=== PATIENT | female | born 1960 | race Caucasian/White ===

== ENCOUNTER 2023-06-27 21:44 | Inpatient (IN) ==
[2023-06-27] MEDS ORDERED: SODIUM CHLORIDE 0.9% 500 ML IV SCH (22:15)
--- NOTE | 2023-06-27 22:17 | Emergency Department Note ---
Impression & Plan Unsteady, skilled nursing (current) use of anticoagulants, Fall, Hematoma of occipital region of scalp ED Provider Note Provider: Charly Swan MD DATE OF SERVICE: 06/27/2023 CHIEF COMPLAINT: Unbalanced, fall x2 HISTORY OF PRESENT ILLNESS: Patient is a 62-year-old female history of type 2 diabetes, hypertension, gastric sleeve and aortic stenosis status post replacement on chronic Coumadin presenting here stating over the last week or 2 she has had some periods of on balance test. Today there is been multiple episodes. 2 occurred while she was at work at [employer]. Lost balance around 5 PM but did not suffer significant fall. Was more imbalanced around 9 PM and went to the ground but did not think she lost consciousness. Memory is little bit foggy. No seizure activity reported. Bit of head pain and posterior head swelling and discomfort. No bleeding reported. Denies chest pain or palpitations. Denies difficulty breathing. Had a bit of congestion and sinus congestion earlier in the week without improving. Trace leg swelling but denies significant. 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 EYES: No injection, discharge or icterus. PERRL, EOMI. NECK: Trachea midline. Supple. ENT: Mucous membranes pink and moist. Pharynx without erythema or exudate. LUNGS: Airway patent. No retractions. Breath sounds clear with good air entry bilaterally. HEART: Regular rate and rhythm. No chest wall tenderness ABDOMEN: Soft and non-tender, without guarding or rebound. No hepatosplenomegaly or masses BACK: No midline tenderness, no SI joint tenderness. No bilateral flank tenderness. SKIN: Acyanotic, warm, dry, without rashes EXTREMITIES: Without swelling, tenderness or deformity NEUROLOGICAL: No focal deficits. No aphasia. No facial droop or slurred speech. Normal strength and tone in the extremities. Sensation to gross touch normal. Ambulatory. EK bpm sinus rhythm first-degree AV block with right bundle branch block evident. No acute ST segment elevation is noted with some T wave flattening to inversion laterally. QTc 476. Compared to previous from March 23, 2022 longer with PVC. CONTINUOUS CARDIAC MONITORING: was ordered and showed a heart rate of 60s-70s bpm in normal sinus rhythm Patient's laboratory studies and imaging reviewed. Differential includes Vasovagal event, dehydration, infection, hypoglycemia, electrolyte abnormalities, cardiac sources, intracerebral event, pulmonary embolism, seizure, toxicologic, neurologic, as well as other pathologies. IMPRESSION/MEDICAL DECISION MAKING: Patient with a bit of imbalance nature and then a fall today with a seemingly scalp occiput hematoma. Is on Coumadin. CT of the head cervical spine to be obtained. INR checked and is somewhat elevated at 3.5. Discussed with patient. No significant trauma otherwise to the extremities or chest abdomen pelvis appreciated. Denies palpitations. Denies loss of conscious. Does not seem like seizure. Did have a little bit of sinus congestion recently. COVID- negative. No significant chemistry abnormality signs of renal dysfunction. Thyroid function normal. Troponin level normal. No evidence of hepatic transaminitis. CT head and cervical spine by radiology report without significant traumatic injury or intracranial bleeding noted. Again doubt this is ACS/NC. Unclear exact etiology. Did discuss with her likely needing to hold 1 dose of her Coumadin discuss further long-term dosing given the elevated INR today. Discussed options at this time including possible observation for fur ther evaluation given these recurrent events or cardiac history versus close outpatient follow-up. Given the elevated INR and her falls and unsteadiness periods will bring in for further monitoring and neurological evaluation including possible neuro consult and MRI. Lower suspicion this is cardiac. DIAGNOSIS: Unbalanced, fall, long-term anticoagulation DISPOSITION: Hospitalist will evaluate Patient was agreeable with this plan. Past Med/Surg History Medical History (Updated 06/28/23 @ 00:19 by Charly Swan M.D.) Aortic stenosis Echo performed in December 2021 at [facility] showed EF of 65 to 69%. Aortic va lve moderately calcified with severe aortic stenosis. 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 Home Meds Home Medications Medication Instructions Recorded Confirmed atenolol 50 mg tablet 25 mg PO QAM 01/24/22 02/08/22 cholecalciferol (vitamin D3) 50 2,000 unit PO QAM 01/24/22 02/08/22 mcg (2,000 unit) capsule (Vitamin D3) fenofibrate nanocrystallized 145 145 mg PO QAM 01/24/22 02/08/22 mg tablet furosemide 20 mg tablet (Lasix) 20 mg PO QAM 01/24/22 02/08/22 insulin glargine 100 unit/mL (3 32 unit subcut QA 01/24/22 02/08/22 mL) subcutaneous pen (Lantus Solostar U-100 Insulin) metformin 500 mg tablet,extended 1,000 mg PO QAM 01/24/22 02/08/22 release 24 hr omeprazole 20 mg capsule,delayed 20 mg PO QAM 01/24/22 02/08/22 release rosuvastatin 40 mg tablet 40 mg PO QAM 01/24/22 02/08/22 semaglutide 0.25 mg or 0.5 mg (2 1 mg subcut WK 01/24/22 02/08/22 mg/1.5 mL) subcutaneous pen injector (Ozempic) Results & Data (ED) Vital Signs Vital Signs - 24 hr 06/27/23 21:33 06/27/23 21:51 06/27/23 22:09 Temperature 36.8 C Temperature Source Oral Pulse Rate 72 Respiratory Rate 16 Respiratory Effort / Characteristics Non-Labored Spontaneous Non-Labored Spontaneous Respiratory Depth Normal Normal Blood Pressure 165/114 H Blood Pressure Mean 131 Pulse Oximetry 97 98 Oxygen Delivery Method Room Air Room Air Sepsis New/Unexplained Change in Mental Status No Sepsis Action Taken by Nursing No Action Required Laboratory Data 06/27/23 22:10 06/27/23 22:10 Lab Results 06/27/23 06/27/23 06/27/23 Range/Units 22:10 22:10 22:10 WBC 6.72 (4.8-10.8) K/ul RBC 5.23 (4.20-5.40) M/uL Hgb 15.2 (12.0-16.0) g/dl Hct 46.8 (37.0-47.0) % MCV 89.5 (80.0-100.0) fL MCH 29.1 (25.0-34.0) pg MCHC 32.5 (32.0-36.0) g/dL RDW Std Deviation 43.7 (36.4-46.3) fL RDW Coeff of Ginny 13.3 (11.5-14.5) % Plt Count 244 (130-400) K/uL MPV 9.9 (9.4-12.4) fL Immature Gran % (Auto) 0.1 % Neut % (Auto) 50.3 % Lymph % (Auto) 40.3 % Amite % (Auto) 7.7 % Eos % (Auto) 1.2 % Baso % (Auto) 0.4 % Neut # (Auto) 3.37 (1.40-6.50) K/uL Lymph # (Auto) 2.71 (1.20-3.40) K/uL Amite # (Auto) 0.52 (0.11-0.59) K/uL Eos # (Auto) 0.08 (0.00-0.50) K/uL Baso # (Auto) 0.03 (0.00-0.20) K/uL Immature Gran # (Auto) 0.01 (0.01-0.20) K/uL PT 35.2 H (9.0-12.0) Seconds INR 3.5 H (0.9-1.1) APTT 41.3 H* (21.0-31.0) Seconds PTT Ratio 1.5 Sodium 139 (136-145) mmol/L Potassium 4.6 (3.5-5.1) mmol/L Chloride 108 H (98-107) mmol/L Carbon Dioxide 22 (21-32) mmol/L Anion Gap 9 (3-11) BUN 20 (6-23) mg/dl Creatinine 0.62 (0.6-1.2) mg/dl Est Cr Clr Drug Dosing 128.4 ml/min Est GFR ( Amer) 112.8 ml/min Est GFR (Non-Af Amer) 97.3 ml/min BUN/Creatinine Ratio 32.3 H (10-20) Glucose 118 H (70-99(Fasting)) mg/dl Calcium 9.6 (8.6-10.3) mg/dl Magnesium 2.0 (1.7-2.4) mg/dl Total Bilirubin 0.5 (0.2-1.0) mg/dl AST 15 (13-39) U/L ALT 11 (7-52) U/L Alkaline Phosphatase 75 (34-104) U/L Troponin I High Sens 6.2 (0-14) pg/ml Total Protein 6.7 (6.0-8.3) gm/dl Albumin 4.3 (3.4-5.0) gm/dl Globulin 2.4 L (2.5-4.0) gm/dl Albumin/Globulin Ratio 1.8 (0.9-2) TSH 0.877 (0.300-4.500) uIu/ml SARS-CoV-2, RNA, NAAT (NEGATIVE) 06/27/23 Range/Units 23:00 WBC (4.8-10.8) K/ul RBC (4.20-5.40) M/uL Hgb (12.0-16.0) g/dl Hct (37.0-47.0) % MCV (80.0-100.0) fL MCH (25.0-34.0) pg MCHC (32.0-36.0) g/dL RDW Std Deviation (36.4-46.3) fL RDW Coeff of Ginny (11.5-14.5) % Plt Count (130-400) K/uL MPV (9.4-12.4) fL Immature Gran % (Auto) % Neut % (Auto) % Lymph % (Auto) % Amite % (Auto) % Eos % (Auto) % Baso % (Auto) % Neut # (Auto) (1.40-6.50) K/uL Lymph # (Auto) (1.20-3.40) K/uL Amite # (Auto) (0.11-0.59) K/uL Eos # (Auto) (0.00-0.50) K/uL Baso # (Auto) (0.00-0.20) K/uL Immature Gran # (Auto) (0.01-0.20) K/uL PT (9.0-12.0) Seconds INR (0.9-1.1) APTT (21.0-31.0) Seconds PTT Ratio Sodium (136-145) mmol/L Potassium (3.5-5.1) mmol/L Chloride (98-107) mmol/L Carbon Dioxide (21-32) mmol/L Anion Gap (3-11) BUN (6-23) mg/dl Creatinine (0.6-1.2) mg/dl Est Cr Clr Drug Dosing ml/min Est GFR ( Amer) ml/min Est GFR (Non-Af Amer) ml/min BUN/Creatinine Ratio (10-20) Glucose (70-99(Fasting)) mg/dl Calcium (8.6-10.3) mg/dl Magnesium (1.7-2.4) mg/dl Total Bilirubin (0.2-1.0) mg/dl AST (13-39) U/L ALT (7-52) U/L Alkaline Phosphatase (34-104) U/L Troponin I High Sens (0-14) pg/ml Total Protein (6.0-8.3) gm/dl Albumin (3.4-5.0) gm/dl Globulin (2.5-4.0) gm/dl Albumin/Globulin Ratio (0.9-2) TSH (0.300-4.500) uIu/ml SARS-CoV-2, RNA, NAAT NEGATIVE (NEGATIVE) Administered Medications Discontinued Medications Acetaminophen (Acetaminophen 500 Mg Tab) 1,000 mg PO NOW STA Stop: 06/27/23 22:49 Last Admin: 06/27/23 22:55 Dose: 1,000 mg Documented By: DONNA Sodium Chloride (Nss) 500 mls @ 999 mls/hr IV .Q31M GINA Stop: 06/27/23 22:45 Last Admin: 06/27/23 22:13 Dose: 999 mls/hr Documented By: DONNA Imaging Data Radiologist's Impression: Cervical Spine CT 06/27/23 22:17 Exam(s): CT C SPINE EXAM: CT Cervical Spine Without Intravenous Contrast CLINICAL HISTORY: Reason for exam: fall. TECHNIQUE: Axial computed tomography images of the cervical spine without intravenous contrast. CTDI is 25.33 mGy and DLP is 535.44 mGy-cm. Automated exposure control was utilized for the study. A dose lowering technique was utilized adhering to the principles of ALARA. COMPARISON: No relevant prior studies available. FINDINGS: Vertebrae: There is straightening of the normal cervical lordosis. There is diffuse osseous demineralization. No acute fracture. Discs/spinal canal/neural foramina: There is moderate to severe multilevel degenerative change with intervertebral disc space loss and productive changes. No spinal canal stenosis. Soft tissues: Unremarkable. Vasculature: There is dense calcification of the carotid bulbs. IMPRESSION: Multilevel degenerative change without acute injury identified. Electronically signed by: Gilberto Molina MD 06/27/23 23:[address] 06/27/23 22:17 Exam(s): CT HEAD Without Contrast EXAM: CT Head Without Intravenous Contrast CLINICAL HISTORY: Reason for exam: hit head on coumadin. TECHNIQUE: Axial computed tomography images of the head/brain without intravenous contrast. CTDI is 37.22 mGy and DLP is 624.41 mGy-cm. Automated exposure control was utilized for the study. A dose lowering technique was utilized adhering to the principles of ALARA. 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 The cerebral and cerebellar sulci are mildly prominent consistent with mild brain atrophy. There are a few areas of decreased attenuation in the deep cerebral white matter consistent with mild small vessel ischemic/degenerative changes. No hemorrhage. Ventricles: Unremarkable. No ventriculomegaly. Bones/joints: Unremarkable. No acute fracture. Soft tissues: Moderate soft tissue swelling over the high right parietal calvarium. Vasculature: Atherosclerotic disease. Sinuses: Unremarkable as visualized. No acute sinusitis. Mastoid air cells: Unremarkable as visualized. No mastoid effusion. IMPRESSION: No acute findings in the head/brain. 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, Fall, Hematoma of occipital region of scalp Patient Disposition: Being Evaluated by Hospitalist Forms Stand Alone Forms: My [facility] Prescriptions Prescriptions: No Action omeprazole 20 mg capsule,delayed release(DR/EC) 20 mg PO QAM furosemide [Lasix] 20 mg tablet 20 mg PO QAM metformin 500 mg tablet extended release 24 hr 1,000 mg PO QAM atenolol 50 mg tablet 25 mg PO QAM rosuvastatin 40 mg tablet 40 mg PO QAM fenofibrate nanocrystallized 145 mg tablet 145 mg PO QAM Lantus Solostar U-100 Insulin 100 unit/mL (3 mL) insulin pen 32 unit SUBCUT QAM cholecalciferol (vitamin D3) [Vitamin D3] 50 mcg (2,000 unit) Capsule 2,000 unit PO QAM Ozempic 0.25 mg or 0.5 mg(2 mg/1.5 mL) pen injector 1 mg SUBCUT WK Rx Instructions: TAKES ON SUNDAYS. Referrals Referrals: Pam Sosa MD [Primary Care Provider] -
[2023-06-27 22:29] LABS: Basophils # (auto) 0.03 K/uL (0.00-0.20); Basophils % (auto) 0.4 %; Eosinophils # (auto) 0.08 K/uL (0.00-0.50); Eosinophils % (auto) 1.2 %; Hematocrit (blood only) 46.8 % (37.0-47.0); Hemoglobin 15.2 g/dl (12.0-16.0); Immature Granulocytes # (auto) 0.01 K/uL (0.01-0.20); Immature Granulocytes % (auto) 0.1 %; Lymphocytes # (auto) 2.71 K/uL (1.20-3.40); Lymphocytes % (auto) 40.3 %; Mean Corpuscular Hemoglobin 29.1 pg (25.0-34.0); Mean Corpuscular Hgb Conc 32.5 g/dL (32.0-36.0); Mean Corpuscular Volume 89.5 fL (80.0-100.0); Mean Platelet Volume 9.9 fL (9.4-12.4); Monocytes # (auto) 0.52 K/uL (0.11-0.59); Monocytes % (auto) 7.7 %; Neutrophils # (auto) 3.37 K/uL (1.40-6.50); Neutrophils % (auto) 50.3 %; Platelet Count 244 K/uL (130-400); RDW Coefficient of Variation 13.3 % (11.5-14.5); RDW Standard Deviation 43.7 fL (36.4-46.3); Red Blood Count 5.23 M/uL (4.20-5.40); White Blood Count 6.72 K/ul (4.8-10.8)
[2023-06-27] MEDS ORDERED: ACETAMINOPHEN 500 MG TAB PO STA (22:48)
[2023-06-27 22:54] LABS: Troponin I High Sensitivity 6.2 pg/ml (0-14)
[2023-06-27 22:58] LABS: Albumin Level 4.3 gm/dl (3.4-5.0); Bilirubin,Total 0.5 mg/dl (0.2-1.0); Calcium 9.6 mg/dl (8.6-10.3); Potassium 4.6 mmol/L (3.5-5.1)
[2023-06-27 23:03] LABS: Thyroid Stimulating Hormone 0.877 uIu/ml (0.300-4.500)
[2023-06-27 23:04] LABS: Albumin Globulin Ratio 1.8 (0.9-2); BUN Creatinine Ratio 32.3 (10-20); Creatinine Clr Calc Pharmacy 128.4 ml/min; Est GFR (African American) 112.8 ml/min; Est GFR (Non-African American) 97.3 ml/min; Globulin 2.4 gm/dl (2.5-4.0); Total Protein 6.7 gm/dl (6.0-8.3)
[2023-06-27 23:14] LABS: INR 3.5 (0.9-1.1); Partial Thromboplastin Ratio 1.5; Prothrombin Time 35.2 Seconds (9.0-12.0)
[2023-06-27 23:18] LABS: Partial Thromboplastin Time 41.3 Seconds (21.0-31.0)
--- NOTE | 2023-06-27 23:47 | CT Scan Report ---
Exam(s): CT HEAD Without Contrast EXAM: CT Head Without Intravenous Contrast CLINICAL HISTORY: Reason for exam: hit head on coumadin. TECHNIQUE: Axial computed tomography images of the head/brain without intravenous contrast. CTDI is 37.22 mGy and DLP is 624.41 mGy-cm. Automated exposure control was utilized for the study. A dose lowering technique was utilized adhering to the principles of ALARA. 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 The cerebral and cerebellar sulci are mildly prominent consistent with mild brain atrophy. There are a few areas of decreased attenuation in the deep cerebral white matter consistent with mild small vessel ischemic/degenerative changes. No hemorrhage. Ventricles: Unremarkable. No ventriculomegaly. Bones/joints: Unremarkable. No acute fracture. Soft tissues: Moderate soft tissue swelling over the high right parietal calvarium. Vasculature: Atherosclerotic disease. Sinuses: Unremarkable as visualized. No acute sinusitis. Mastoid air cells: Unremarkable as visualized. No mastoid effusion. IMPRESSION: No acute findings in the head/brain. Electronically signed by: Gilberto Molina MD 06/27/23 23:47 PM
--- NOTE | 2023-06-27 23:49 | CT Scan Report ---
Exam(s): CT C SPINE EXAM: CT Cervical Spine Without Intravenous Contrast CLINICAL HISTORY: Reason for exam: fall. TECHNIQUE: Axial computed tomography images of the cervical spine without intravenous contrast. CTDI is 25.33 mGy and DLP is 535.44 mGy-cm. Automated exposure control was utilized for the study. A dose lowering technique was utilized adhering to the principles of ALARA. COMPARISON: No relevant prior studies available. FINDINGS: Vertebrae: There is straightening of the normal cervical lordosis. There is diffuse osseous demineralization. No acute fracture. Discs/spinal canal/neural foramina: There is moderate to severe multilevel degenerative change with intervertebral disc space loss and productive changes. No spinal canal stenosis. Soft tissues: Unremarkable. Vasculature: There is dense calcification of the carotid bulbs. IMPRESSION: Multilevel degenerative change without acute injury identified. Electronically signed by: Gilberto Molina MD 06/27/23 23:48 PM
--- NOTE | 2023-06-28 02:10 | History & Physical Report ---
Date of Service June 28, 2023 Assessment & Plan (1) Fall: Plan: 62-year-old female with past medical significant for type 2 diabetes, hypertension, sleep apnea, hypertension, severe aortic stenosis s/p aortic valve replacement, obesity s/p gastric sleeve procedure presents with imbalance and fall. Imbalance and fall Imbalance ongoing for some time but today fell twice Has occipital hematoma. Questionable presyncope We will rule out any central cause We will check orthostatics Carotid Doppler, echo and MRI of the brain Telemetry monitoring Consult cardiology in a.m. History of diabetes Continue Lantus Hold p.o. medications Insulin sliding scale We will follow blood sugars and HbA1c levels Hypertension Continue atenolol We will monitor Hyperlipidemia On statin and fenofibrate History of severe arctic stenosis s/p attic valve replacement mechanical On Coumadin. INR 3.5 we will hold Coumadin follow PT/INR Obstructive sleep apnea CPAP nightly DVT prophylaxis INR supratherapeutic follow PT/INR Disposition telemetry floor Full code History of Present Illness Chief Complaint: Imbalance and fall Primary Care Provider: Pam Sosa MD 62-year-old female with past medical significant for type 2 diabetes, hypertension, sleep apnea, hypertension, severe aortic stenosis s/p aortic valve replacement, obesity s/p gastric sleeve procedure presents with imbalance and fall. 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 When she was walking again she she felt loss of balance and fell backwards and hit her back of the head. During the episode no loss of consciousness, no feeling of chest pain or dizziness or palpitations. She is feeling imbalance for some time at home but she thinks she never fell. Currently has some headache. Denies any blurred visions. No earaches. Early in the week she has some cold symptoms but got resolved now. No dysphagia. No chest pain or shortness of breath. Currently no cough. Appetite is okay. No nausea or vomiting. No abdominal pain. Normal bowel and bladder movements. Currently resting comfortably. Past medical history as mentioned above Past surgical history. S/p aortic valve replacement. S/p gastric sleeve procedure. Right breast biopsy. Social history. No smoking. No alcohol. Family history. Mother had atrial fibrillation. Heart failure. Stroke. Father has colon polyps. CAD. Hyperlipidemia. Prediabetes. Paternal grandfather had brain aneurysm. Maternal aunt had breast cancer. Paternal aunt has colon cancer. Maternal grandfather had a heart attack. Brother has hyperlipidemia. Maternal grandmother had stroke. Allergies Allergy/AdvReac Type Severity Reaction Status Date / Time Calcium Channel Blocking AdvReac Unknown CAN'T Verified 06/28/23 03:26 Agent Dilt REMEMBER WHICH MEDICATION OR REACTION. Home Medications Medication Instructions Recorded Confirmed Type atenolol 50 mg tablet 25 mg PO BID 01/24/22 06/28/23 History cholecalciferol (vitamin D3) 50 2,000 unit PO QAM 01/24/22 06/28/23 History mcg (2,000 unit) capsule (Vitamin D3) fenofibrate nanocrystallized 145 145 mg PO QAM 01/24/22 06/28/23 History mg tablet furosemide 20 mg tablet (Lasix) 20 mg PO QAM 01/24/22 06/28/23 History insulin glargine 100 unit/mL (3 28 unit subcut HS 01/24/22 06/28/23 History mL) subcutaneous pen (Lantus Solostar U-100 Insulin) metformin 500 mg tablet,extended 1,000 mg PO QAM 01/24/22 06/28/23 History release 24 hr omeprazole 20 mg capsule,delayed 20 mg PO QAM 01/24/22 06/28/23 History release rosuvastatin 40 mg tablet 40 mg PO QAM 01/24/22 06/28/23 History aspirin 81 mg chewable tablet 81 mg PO DAILY 06/28/23 06/28/23 History semaglutide 2 mg/dose (8 mg/3 mL) 2 mg subcut WK 06/28/23 06/28/23 History subcutaneous pen injector (Ozempic) warfarin 5 mg tablet 7.5 mg PO .6DAYS WEEK 06/28/23 06/28/23 History warfarin 5 mg tablet 10 mg PO .Q THUR 06/28/23 06/28/23 History Past Med/Surg History Medical History (Updated 06/28/23 @ 00:19 by Charly Swan M.D.) Aortic stenosis Echo performed in December 2021 at [facility] showed EF of 65 to 69%. Aortic valve moderately calcified with severe aortic stenosis. Dyslipidemia HTN (hypertension) Sleep apnea Type 2 diabetes mellitus Surgical History H/O gastric sleeve History of heart valve replacement AVR 23mm On X valve; bovine pericardial patch closure aortotomy on Family History (Updated 04/19/22 @ 14:25 by Eneida Quesada RN) Mother Valvular heart disease Social History Smoking Status: Never smoker Second Hand Exposure: No; Do You Dip or Chew Tobacco: No; Hx Alcohol Use: Yes Hx Substance Use: No Preferred Language: Maltese Communication Ability: Effective Applications Scientist Required: No Beliefs That Will Affect Care: None Current Living Situation: Parent and Family 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 Eyes- PERRL, EOMI, anicteric ENT- oropharynx clear Neck- supple, no JVD, no adenopathy, . Lungs- clear to auscultation , No wheezing or crackles. Heart- regular rhythm; mechanical heart sounds in aortic area., no gallop. Abdomen- normal bowel sounds, soft, nontender, no distension. Extremities-Lower extremity edema present. No erythema seen. Neuro- alert, oriented x 3; PERRL, EOMI; no facial palsy; no dysarthria; motor 5/5 bilaterally; no pronator drift, coordination of movements normal, sensation and position sense intact. Skin- warm & dry Results & Data Results & Data Vital Signs (Past 12 Hours) Vital Signs Temp Pulse Resp BP Pulse Ox O2 Del Method 06/28/23 01:30 63 17 194/83 H 96 06/28/23 01:00 63 18 97 06/28/23 00:00 63 21 158/82 H 96 06/27/23 23:30 64 17 165/87 H 99 06/27/23 23:00 67 16 98 06/27/23 22:09 66 06/27/23 22:09 98 Room Air 06/27/23 21:33 36.8 C 72 16 165/114 H 97 Room Air Diagnostic Findings Laboratory Results WBC 6.72 K/ul (4.8-10.8) 06/27/23 22:10 RBC 5.23 M/uL (4.20-5.40) 06/27/23 22:10 Hgb 15.2 g/dl (12.0-16.0) 06/27/23 22:10 Hct 46.8 % (37.0-47.0) 06/27/23 22:10 MCV 89.5 fL (80.0-100.0) 06/27/23 22:10 MCH 29.1 pg (25.0-34.0) 06/27/23 22:10 MCHC 32.5 g/dL (32.0-36.0) 06/27/23 22:10 RDW Std Deviation 43.7 fL (36.4-46.3) 06/27/23 22:10 RDW Coeff of Ginny 13.3 % (11.5-14.5) 06/27/23 22:10 Plt Count 244 K/uL (130-400) 06/27/23 22:10 MPV 9.9 fL (9.4-12.4) 06/27/23 22:10 Immature Gran % (Auto) 0.1 % 06/27/23 22:10 Neut % (Auto) 50.3 % 06/27/23 22:10 Lymph % (Auto) 40.3 % 06/27/23 22:10 Angelina % (Auto) 7.7 % 06/27/23 22:10 Eos % (Auto) 1.2 % 06/27/23 22:10 Baso % (Auto) 0.4 % 06/27/23 22:10 Neut # (Auto) 3.37 K/uL (1.40-6.50) 06/27/23 22:10 Lymph # (Auto) 2.71 K/uL (1.20-3.40) 06/27/23 22:10 Angelina # (Auto) 0.52 K/uL (0.11-0.59) 06/27/23 22:10 Eos # (Auto) 0.08 K/uL (0.00-0.50) 06/27/23 22:10 Baso # (Auto) 0.03 K/uL (0.00-0.20) 06/27/23 22:10 Immature Gran # (Auto) 0.01 K/uL (0.01-0.20) 06/27/23 22:10 PT 35.2 Seconds (9.0-12.0) H 06/27/23 22:10 INR 3.5 (0.9-1.1) H 06/27/23 22:10 APTT 41.3 Seconds (21.0-31.0) H* 06/27/23 22:10 PTT Ratio 1.5 06/27/23 22:10 Sodium 139 mmol/L (136-145) 06/27/23 22:10 Potassium 4.6 mmol/L (3.5-5.1) 06/27/23 22:10 Chloride 108 mmol/L (98-107) H 06/27/23 22:10 Carbon Dioxide 22 mmol/L (21-32) 06/27/23 22:10 Anion Gap 9 (3-11) 06/27/23 22:10 BUN 20 mg/dl (6-23) 06/27/23 22:10 Creatinine 0.62 mg/dl (0.6-1.2) 06/27/23 22:10 Est Cr Clr Drug Dosing 128.4 ml/min 06/27/23 22:10 Est GFR ( Amer) 112.8 ml/min 06/27/23 22:10 Est GFR (Non-Af Amer) 97.3 ml/min 06/27/23 22:10 BUN/Creatinine Ratio 32.3 (10-20) H 06/27/23 22:10 Glucose 118 mg/dl (70-99(Fasting)) H 06/27/23 22:10 Calcium 9.6 mg/dl (8.6-10.3) 06/27/23 22:10 Magnesium 2.0 mg/dl (1.7-2.4) 06/27/23 22:10 Total Bilirubin 0.5 mg/dl (0.2-1.0) 06/27/23 22:10 AST 15 U/L (13-39) 06/27/23 22:10 ALT 11 U/L (7-52) 06/27/23 22:10 Alkaline Phosphatase 75 U/L (34-104) 06/27/23 22:10 Troponin I High Sens 6.2 pg/ml (0-14) 06/27/23 22:10 Total Protein 6.7 gm/dl (6.0-8.3) 06/27/23 22:10 Albumin 4.3 gm/dl (3.4-5.0) 06/27/23 22:10 Globulin 2.4 gm/dl (2.5-4.0) L 06/27/23 22:10 Albumin/Globulin Ratio 1.8 (0.9-2) 06/27/23 22:10 TSH 0.877 uIu/ml (0.300-4.500) 06/27/23 22:10 SARS-CoV-2, RNA, NAAT NEGATIVE (NEGATIVE) 06/27/23 23:[address] 06/27/23 22:17 Exam(s): CT C SPINE EXAM: CT Cervical Spine Without Intravenous Contrast CLINICAL HISTORY: Reason for exam: fall. TECHNIQUE: Axial computed tomography images of the cervical spine without intravenous contrast. CTDI is 25.33 mGy and DLP is 535.44 mGy-cm. Automated exposure control was utilized for the study. A dose lowering technique was utilized adhering to the principles of ALARA. COMPARISON: No relevant prior studies available. FINDINGS: Vertebrae: There is straightening of the normal cervical lordosis. There is diffuse osseous demineralization. No acute fracture. Discs/spinal canal/neural foramina: There is moderate to severe multilevel degenerative change with intervertebral disc space loss and productive changes. No spinal canal stenosis. Soft tissues: Unremarkable. Vasculature: There is dense calcification of the carotid bulbs. IMPRESSION: Multilevel degenerative change without acute injury identified. Electronically signed by: Gilberto Molina MD 06/27/23 23:[address] 06/27/23 22:17 Exam(s): CT HEAD Without Contrast EXAM: CT Head Without Intravenous Contrast CLINICAL HISTORY: Reason for exam: hit head on coumadin. TECHNIQUE: Axial computed tomography images of the head/brain without intravenous contrast. CTDI is 37.22 mGy and DLP is 624.41 mGy-cm. Automated exposure control was utilized for the study. A dose lowering technique was utilized adhering to the principles of ALARA. 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 The cerebral and cerebellar sulci are mildly prominent consistent with mild brain atrophy. There are a few areas of decreased attenuation in the deep cerebral white matter consistent with mild small vessel ischemic/degenerative changes. No hemorrhage. Ventricles: Unremarkable. No ventriculomegaly. Bones/joints: Unremarkable. No acute fracture. Soft tissues: Moderate soft tissue swelling over the high right parietal calvarium. Vasculature: Atherosclerotic disease. Sinuses: Unremarkable as visualized. No acute sinusitis. Mastoid air cells: Unremarkable as visualized. No mastoid effusion. IMPRESSION: No acute findings in the head/brain. Electronically signed by: Gilberto Molina MD 06/27/23 23:47 PM ECG Additional Comments: ECG. Sinus rhythm with first-degree AV block with rate of 63. Right bundle branch block. Code Status & VTE Plan VTE Prophylaxis Plan VTE Prophylaxis will be ordered: Yes
[2023-06-28] MEDS ORDERED: POLYETHYLENE (MIRALAX) 17 GM PACK PO PRN (02:53)
[2023-06-28] MEDS ORDERED: GLUCOSE 40% GEL 15 GM TUBE PO PRN (02:53)
[2023-06-28] MEDS ORDERED: CARBOHYDRATES FOR HYPOGLYCEMIA PO PRN (02:53)
[2023-06-28] MEDS ORDERED: SODIUM CHLORIDE 0.9% 1,000 ML IV SCH (02:53)
[2023-06-28] MEDS ORDERED: GLUCOSE 10 TAB/TUBE PO PRN (02:53)
[2023-06-28] MEDS ORDERED: GLUCAGON FOR INJ 1 MG VIAL SQ PRN (02:53)
[2023-06-28] MEDS ORDERED: NITROGLYCERIN SL 0.4 MG/TAB TAB SL PRN (02:53)
[2023-06-28] MEDS ORDERED: DEXTROSE 50% 50 ML SYRINGE IV PRN (02:53)
[2023-06-28] MEDS ORDERED: GADOBUTROL 65ML VIAL IV ONE (04:23)
[2023-06-28 05:43] LABS: Basophils # (auto) 0.04 K/uL (0.00-0.20); Basophils % (auto) 0.6 %; Eosinophils % (auto) 1.4 %; Hematocrit (blood only) 47.1 % (37.0-47.0); Hemoglobin 15.6 g/dl (12.0-16.0); Immature Granulocytes # (auto) 0.01 K/uL (0.01-0.20); Immature Granulocytes % (auto) 0.1 %; Lymphocytes # (auto) 2.67 K/uL (1.20-3.40); Lymphocytes % (auto) 37.5 %; Mean Corpuscular Hemoglobin 29.2 pg (25.0-34.0); Mean Corpuscular Hgb Conc 33.1 g/dL (32.0-36.0); Mean Platelet Volume 9.9 fL (9.4-12.4); Monocytes # (auto) 0.59 K/uL (0.11-0.59); Monocytes % (auto) 8.3 %; Neutrophils # (auto) 3.71 K/uL (1.40-6.50); Neutrophils % (auto) 52.1 %; Platelet Count 254 K/uL (130-400); RDW Coefficient of Variation 13.5 % (11.5-14.5); RDW Standard Deviation 43.4 fL (36.4-46.3); Red Blood Count 5.35 M/uL (4.20-5.40); White Blood Count 7.12 K/ul (4.8-10.8)
[2023-06-28] MEDS: ACETAMINOPHEN 325 MG TAB PO PRN ×2 (06:11→15:33)
[2023-06-28 06:23] LABS: Calcium 9.9 mg/dl (8.6-10.3); Magnesium 1.9 mg/dl (1.7-2.4); Potassium 4.2 mmol/L (3.5-5.1)
[2023-06-28 06:28] LABS: BUN Creatinine Ratio 30.6 (10-20); Creatinine Clr Calc Pharmacy 128.4 ml/min; Est GFR (African American) 112.8 ml/min; Est GFR (Non-African American) 97.3 ml/min
[2023-06-28 07:04] LABS: INR 3.1 (0.9-1.1); Prothrombin Time 31.7 Seconds (9.0-12.0)
[2023-06-28 07:30] LABS: Estimated Average Glucose 163 mg/dl; Hemoglobin A1C 7.3 % (4.5-5.6)
--- NOTE | 2023-06-28 07:44 | Ultrasound Report ---
BILATERAL CAROTID DOPPLER STUDY HISTORY: near syncope COMPARISON: CTA neck 03/23/2022. TECHNIQUE: Real-time, grayscale, and color Doppler sonography of the carotid arteries was performed. Imaging reviewed in the transverse and longitudinal planes. All measurements were calculated based on NASCET criteria. FINDINGS: Antegrade flow is seen in the bilateral vertebral arteries. No significant calcified plaque within the carotid arteries. The peak systolic velocity within the right ICA is 70 cm/s. The right systolic ratio is 1.2. The peak systolic velocity within the left ICA is 74 cm/s. The left systolic ratio is 1.2. IMPRESSION: No hemodynamically significant stenosis seen within the carotid arteries. ACT 112: Negative or not required by law. Electronically signed by: Eulalio Valdivia M.D. 06/28/2023 7:43 AM
[2023-06-28] MEDS ORDERED: hydrALAZINE HCL 20 MG/ML VIAL IV ONE (08:00)
[2023-06-28] MEDS: FENOFIBRATE NANOCRYSTALLIZED 145 MG TABLET PO SCH (08:29)
[2023-06-28] MEDS: FUROSEMIDE 20 MG TAB PO SCH (08:29)
[2023-06-28] MEDS: ROSUVASTATIN CALCIUM 20 MG TAB PO SCH (08:29)
[2023-06-28] MEDS: ATENOLOL 25 MG TABLET PO SCH ×2 (08:29→20:51)
[2023-06-28] MEDS: ASPIRIN 81 MG CHEW PO SCH (08:29)
[2023-06-28] MEDS: CHOLECALCIFEROL 1,000 UNITS 25 MCG TAB PO SCH (08:30)
[2023-06-28] MEDS: PANTOprazole 40 MG TAB PO SCH (08:30)
--- NOTE | 2023-06-28 08:33 | Magnetic Resonance Report ---
MR brain wo/w con CLINICAL HISTORY: imbalance and falls. has mechanical aortic valve TECHNIQUE: Multiplanar and multisequence MR images of the brain were obtained prior to and following administration of gadolinium contrast. Comparison: Comparison is made to MRI brain 03/23/2022 FINDINGS: No abnormal restricted diffusion is identified. Foci of T2 and FLAIR hyperintensity are noted in the paraventricular areas consistent with chronic small vessel ischemic disease. Focal gliosis in the rig ht frontal lobe is unchanged likely due to prior infarct. Ex vacuo ventriculomegaly and sulcal enlarg ement is noted compatible with diffuse volume loss. No mass or abnormal enhancement is seen. There is no mass effect or midline shift. There is no evidence of acute intraparenchymal hemorrhage. Scalp he matoma is seen over the right posterior calvarium. No extra axial fluid collections are seen. The cor pus callosum, pituitary gland, and cerebellar tonsils appear grossly unremarkable. Flow voids of the major intracranial arterial vessels are identified. The imaged portions of the para nasal sinuses, mastoid air cells, and orbits are unremarkable. IMPRESSION: 1. No acute intracranial abnormalities. 2. Scalp hematoma is seen. ACT 112: Negative or not required by law. Electronically signed by: Juancarlos Lewis M.D. 06/28/2023 8:32 AM
--- NOTE | 2023-06-28 08:39 | Cardiology Consultation ---
Date of Consultation June 28, 2023 Assessment & Plan (1) HTN (hypertension): (2) H/O mechanical aortic valve replacement: (3) RBBB: Plan Patient admitted after 2 falls secondary to gait instability, worsening over the last few weeks. Possible worsening peripheral neuropathy? Head CT and Brain MRI without acute changes. No hemorrhage while on Coumadin. Scalp hematoma only noted. Uncontrolled hypertension since admission Difficult to determine if this is contributing factor. Continue atenolol 25 mg BID Restart lisinopril 10 mg daily (previously on 20-40 mg prior to aortic valve replacement) She is also diabetic and would benefit from MYNOR/ARB Chronic RBBB unchanged. she does have conduction system disease, continue on telemetry. She denies associated dizziness. Could consider outpatient monitor. Echo with preserved EF and normal functioning mechanical AVR. Negative HS troponin. Hold coumadin today due to elevated INR. Goal INR with Onx Valve is 1.5-2.[address] Pop I spent a total of 60 minutes on the date of service in preparation, delivery, and documentation of the care provided to this patient, excluding any time spent in the performance of separately billed services. Mar Gómez PA-C Department of Cardiology, [facility] This chart was completed in part utilizing Speech Voice Recognition Software. Grammatical errors, random word insertions, pronoun errors, and incomplete sentences are an occasional consequence of this system due to software limitations, ambient noise, and hardware issues. Any formal questions or concerns about the content, text, or information contained within the body of this dictation should be directly addressed to the provider for clarification. Supervising Physician Co-Signing Physician Notes Supervising Physician Attestation: I have personally performed a history and physical examination on the patient. I agree with the physician assistant director of financial aid's findings and plan as documented with the following additions. Subjective: No acute complaints at present. Exam: Cardiovascular regular rhythm, normal prosthetic heart sounds, no edema Data: EKG revealed sinus rhythm at 63 bpm with first-degree AV block, right bundle branch block, IL interval 210 ms, QRS duration 172 ms. Assessment and Plan: As noted above, blood pressure is trending down, continue prior to hospital dose of atenolol, added lisinopril. Agree with neurology evaluation. INR level of 3.1 is slightly above goal (1.5-2) therefore hold Coumadin today., Dr Odell is assuming the service on 06/29. Call with questions or concerns. I spent a total of 20 minutes on the date of service in preparation, delivery, and documentation of the care provided to this patient, excluding any time spent in the performance of separately billed services. Naeem Pop, History of Present Illness Reason for Consultation: Near syncope; gait instability Requesting Physician: Dr. Romero Attending Physician: Dr. Pop History of Present Illness Patient is a 62 year female known to [facility]iology - Dr. Cunningham/Oz History includes: 1. Severe aortic stenosis superimposed on likely bicuspid valve, S/P AVR (23 mm On-X mechanical valve, bovine pericardial patch closure aortotomy), with Dr. Clark 03/12/2022 a.On coumadin, INR goal for this type of valve is 1.5-2.0 2. Normal coronary anatomy per cardiac cath 01/2022 3. Dyslipidemia 4. Type 2 diabetes 5. KYARA, on CPAP 6. Right bundle branch block Patient reports feelings of "imbalance" over the last few weeks. Often would feel she would lean to the side or need to grab onto the wall. She denies associated lightheadedness/near syncope or palpitations with the imbalance. SHe reports long history of peripheral neuropathy with abnormal EMG in the past. Contributes her symptoms to this. 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 About an hour later, she bent over to picker feeder a pen and fell forward, hitting her head. She denies sensation of dizziness. No LOC. No incontinence. Due to head injury and her recurrent falls on Coumadin, she came to the ER for evaluation. In ER, HS troponin has been negative x2. EKG demonstrated NSR with 1st degree AV block and RBBB. IL interval slightly increased from prior evaluation. No arrhythmias on telemetry. Head CT and Brain MRI without acute process. Small vessel change noted on MRI. No bleed. At time of consult, patient resting in bed feeling well. Denies chest pain, SOB, orthopnea, PND or edema. Admits she has not been checking her BP at home recently. No visual changes. Mild headache reported. Allergies Allergy/AdvReac Type Severity Reaction Status Date / Time Calcium Channel Blocking AdvReac Unknown CAN'T Verified 06/28/23 03:26 Agent Dilt REMEMBER WHICH MEDICATION OR REACTION. Home Medications Medication Instructions Recorded Confirmed Type atenolol 50 mg tablet 25 mg PO BID 01/24/22 06/28/23 History cholecalciferol (vitamin D3) 50 2,000 unit PO QAM 01/24/22 06/28/23 History mcg (2,000 unit) capsule (Vitamin D3) fenofibrate nanocrystallized 145 145 mg PO QAM 01/24/22 06/28/23 History mg tablet furosemide 20 mg tablet (Lasix) 20 mg PO QAM 01/24/22 06/28/23 History insulin glargine 100 unit/mL (3 28 unit subcut HS 01/24/22 06/28/23 History mL) subcutaneous pen (Lantus Solostar U-100 Insulin) metformin 500 mg tablet,extended 1,000 mg PO QAM 01/24/22 06/28/23 History release 24 hr omeprazole 20 mg capsule,delayed 20 mg PO QAM 01/24/22 06/28/23 History release rosuvastatin 40 mg tablet 40 mg PO QAM 01/24/22 06/28/23 History aspirin 81 mg chewable tablet 81 mg PO DAILY 06/28/23 06/28/23 History semaglutide 2 mg/dose (8 mg/3 mL) 2 mg subcut WK 06/28/23 06/28/23 History subcutaneous pen injector (Ozempic) warfarin 5 mg tablet 7.5 mg PO .6DAYS WEEK 06/28/23 06/28/23 History warfarin 5 mg tablet 10 mg PO .Q THUR 06/28/23 06/28/23 History Patient History Medical History (Updated 06/28/23 @ 10:21 by Mar Gómez PA-C) Aortic stenosis Echo performed in December 2021 at [facility] showed EF of 65 to 69%. Aortic valve moderately calcified with severe aortic stenosis. Dyslipidemia HTN (hypertension) Sleep apnea Type 2 diabetes mellitus Surgical History (Updated 06/28/23 @ 10:21 by Mar Gómez PA-C) H/O gastric sleeve History of heart valve replacement AVR 23mm On X valve; bovine pericardial patch closure aortotomy on Family History (Updated 04/19/22 @ 14:25 by Eneida Quesada RN) Mother Valvular heart disease Social History Smoking Status: Never smoker Second Hand Exposure: No; Do You Dip or Chew Tobacco: No; Hx Alcohol Use: Yes Hx Substance Use: No Preferred Language: Malagasy Communication Ability: Effective C Programmer Required: No Beliefs That Will Affect Care: None Current Living Situation: Parent and Family 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 [employer] Feels Safe at Home: Yes Safety Concerns: Feels Safe At This Time Assistive Devices: CPAP and Hearing Aid - Bilateral Review of Systems Review of Systems: All systems reviewed & are unremarkable except as noted in HPI & below Physical Exam Constitutional: WD/WN, vitals as above + morbidly obese Neck: trachea midline, no thyromegaly + thick neck Respiratory: normal respiratory effort, lungs clear to auscultation Cardiovascular: Rate/Rhythm: regular rate and regular rhythm Heart Sounds: normal S1, normal S2 and + murmur (II/ systolic murmur ) Gastrointestinal (Abdomen): normal bowel sounds, soft, nontender, no hepatosplenomegaly Musculoskeletal: no cyanosis or clubbing, extremities motor strength 5/5 Skin: no rashes, warm and dry Results & Data Vital Signs (Past 12 Hours) Vital Signs Temp Pulse Pulse Resp BP BP Pulse Ox 06/28/23 08:18 36.5 C 62 20 178/87 H 98 06/28/23 06:07 67 20 178/76 H 98 06/28/23 03:08 36.5 C 68 14 155/78 H 96 06/27/23 22:30 63 06/28/23 01:30 63 17 194/83 H 96 06/28/23 01:00 63 18 97 06/28/23 00:00 63 21 158/82 H 96 06/27/23 23:30 64 17 165/87 H 99 06/27/23 23:00 67 16 98 06/27/23 22:09 66 06/27/23 22:09 98 06/27/23 21:33 36.8 C 72 16 165/114 H 97 O2 Del Method 06/28/23 08:18 Room Air 06/28/23 06:07 Room Air 09/29/23 03:08 Room Air 06/27/23 22:30 06/28/23 01:30 06/28/23 01:00 06/28/23 00:00 06/27/23 23:30 06/27/23 23:00 06/27/23 22:09 06/27/23 22:09 Room Air 06/27/23 21:33 Room Air Laboratory Results Cardiac Enzymes 06/27/23 06/28/23 Range/Units 22:10 05:09 AST 15 (13-39) U/L Troponin I High Sens 6.2 6.0 (0-14) pg/ml Coagulation 06/27/23 06/28/23 Range/Units 22:10 05:09 PT 35.2 H 31.7 H (9.0-12.0) Seconds APTT 41.3 H* (21.0-31.0) Seconds CBC 06/27/23 06/28/23 Range/Units 22:10 05:09 WBC 6.72 7.12 (4.8-10.8) K/ul RBC 5.23 5.35 (4.20-5.40) M/uL Hgb 15.2 15.6 (12.0-16.0) g/dl Hct 46.8 47.1 H (37.0-47.0) % Plt Count 244 254 (130-400) K/uL Neut # (Auto) 3.37 3.71 (1.40-6.50) K/uL Lymph # (Auto) 2.71 2.67 (1.20-3.40) K/uL [place] # (Auto) 0.52 0.59 (0.11-0.59) K/uL Eos # (Auto) 0.08 0.10 (0.00-0.50) K/uL Baso # (Auto) 0.03 0.04 (0.00-0.20) K/uL Comprehensive Metabolic Panel 06/27/23 06/28/23 Range/Units 22:10 05:09 Sodium 139 141 (136-145) mmol/L Potassium 4.6 4.2 (3.5-5.1) mmol/L Chloride 108 H 109 H (98-107) mmol/L Carbon Dioxide 22 27 (21-32) mmol/L BUN 20 19 (6-23) mg/dl Creatinine 0.62 0.62 (0.6-1.2) mg/dl Glucose 118 H 135 H (70-99(Fasting)) mg/dl Calcium 9.6 9.9 (8.6-10.3) mg/dl AST 15 (13-39) U/L ALT 11 (7-52) U/L Alkaline Phosphatase 75 (34-104) U/L Total Protein 6.7 (6.0-8.3) gm/dl Albumin 4.3 (3.4-5.0) gm/dl Intake and Output 06/27/23 06/28/23 06/28/23 22:59 06:59 14:59 Intake Total 500 / 500 Balance 500 / 500 Intake: IV 500 / 500 Sodium Chloride 0.9% 500 ml @ 500 / 500 999 mls/hr IV .Q31M [facility] Rx#: [id number] Other: Weight 124.4 kg 124.4 kg Weight Measurement Method [facility] Findings Telemetry reviewed: NSR with intraventricular conduction delay. Rare PVC's. No arrhythmias EKG reviewed from admission: Sinus rhythm with 1st degree A-V block Right bundle branch block Possible old Inferior infarct (cited on or before 24-JAN-2022) no significant change from previous Echo completed today, report reviewed: The LV wall motion is normal LV systolic function is normal EF 60-65% Mechanical aortic valve Gradient is normal for this prosthetic aortic valve Prosthetic aortic regurgitation is absent Aortic root is mildly dilated 3.8 cm Prox ascending aorta is not visualized. Head CT 06/27/23 22:17 Exam(s): CT HEAD Without Contrast EXAM: CT Head Without Intravenous Contrast CLINICAL HISTORY: Reason for exam: hit head on coumadin. TECHNIQUE: Axial computed tomography images of the head/brain without intravenous contrast. CTDI is 37.22 mGy and DLP is 624.41 mGy-cm. Automated exposure control was utilized for the study. A dose lowering technique was utilized adhering to the principles of ALARA. 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 The cerebral and cerebellar sulci are mildly prominent consistent with mild brain atrophy. There are a few areas of decreased attenuation in the deep cerebral white matter consistent with mild small vessel ischemic/degenerative changes. No hemorrhage. Ventricles: Unremarkable. No ventriculomegaly. Bones/joints: Unremarkable. No acute fracture. Soft tissues: Moderate soft tissue swelling over the high right parietal calvarium. Vasculature: Atherosclerotic disease. Sinuses: Unremarkable as visualized. No acute sinusitis. Mastoid air cells: Unremarkable as visualized. No mastoid effusion. IMPRESSION: No acute findings in the head/brain. Electronically signed by: Gilberto Molina MD 06/27/23 23:47 PM Brain MRI 06/28/23 02:53 MR brain wo/w con CLINICAL HISTORY: imbalance and falls. has mechanical aortic valve TECHNIQUE: Multiplanar and multisequence MR images of the brain were obtained prior to and following administration of gadolinium contrast. Comparison: Comparison is made to MRI brain 03/23/2022 FINDINGS: No abnormal restricted diffusion is identified. Foci of T2 and FLAIR hyperintensity are noted in the paraventricular areas consistent with chronic small vessel ischemic disease. Focal gliosis in the right frontal lobe is unchanged likely due to prior infarct. Ex vacuo ventriculomegaly and sulcal en largement is noted compatible with diffuse volume loss. No mass or abnormal enhancement is seen. There is no mass effect or midline shift. There is no evidence of acute intraparenchymal hemorrhage. Scalp hematoma is seen over the right posterior calvarium. No extra axial fluid collections are seen. The corpus callosum, pituitary gland, and cerebellar tonsils appear grossly unremarkable. Flow voids of the major intracranial arterial vessels are identified. The imaged portions of the paranasal sinuses, mastoid air cells, and orbits are unremarkable. IMPRESSION: 1. No acute intracranial abnormalities. 2. Scalp hematoma is seen. ACT 112: Negative or not required by law. Electronically signed by: Juancarlos Lewis M.D. 06/28/2023 8:32 AM Carotid Doppler Study 06/28/23 02:53 BILATERAL CAROTID DOPPLER STUDY HISTORY: near syncope COMPARISON: CTA neck 03/23/2022. TECHNIQUE: Real-time, grayscale, and color Doppler sonography of the carotid arteries was performed. Imaging reviewed in the transverse and longitudinal planes. All measurements were calculated based on NASCET criteria. FINDINGS: Antegrade flow is seen in the bilateral vertebral arteries. No significant calcified plaque within the carotid arteries. The peak systolic velocity within the right ICA is 70 cm/s. The right systolic ratio is 1.2. The peak systolic velocity within the left ICA is 74 cm/s. The left systolic ratio is 1.2. IMPRESSION: No hemodynamically significant stenosis seen within the carotid arteries. ACT 112: Negative or not required by law. Electronically signed by: Eulalio Valdivia M.D. 06/28/2023 7:43 AM Prior outside data reviewed: Echo report reviewed dated December 2022: Interpretation Summary The examination is adequate to evaluate the referral indication. The qualitative LV ejection fraction is 65-69% (normal). There is an aortic valve bioprosthetic present. The aortic valve prosthesis systolic gradients are normal for this type prosthesis. Trivial paravalvular aortic valve prosthesis regurgitation is present. The aortic root and proximal ascending aorta are mildly enlarged at 4.2 and 4.0 cm respectively ZIO report from February 2022: CONCLUSIONS: His Zio patch XT monitor was worn for 14 days ranging from 03/28/2022 until 04/11/2022. Patient had a min HR of 48 bpm, max HR of 164 bpm, and avg HR of 76 bpm. Predominant underlying rhythm was Sinus Rhythm. Bundle Branch Block/IVCD was present. First Degree AV Block was present. 15 Supraventricular Tachycardia runs occurred, the run with the fastest interval lasting 5 beats with a max rate of 164 bpm, the longest lasting 9 beats with an avg rate of 128 bpm. Isolated SVEs were rare (<1.0%), SVE Couplets were rare (<1.0%), and SVE Triplets were rare (<1.0%). Isolated VEs were occasional (1.8%, [id number]), VE Couplets were rare (<1.0%, 441), and no VE Triplets were present. Ventricular Bigeminy and Trigeminy were present. There were 8 patient triggered events and 6 diary events submitted. The events correlated with sinus rhythm with sensed premature ventricular contractions and premature atrial contractions. The overall burden of the premature ventricular contractions was moderate in frequency, 1.8%. Medications Administered Current Inpatient Medications Acetaminophen (Acetaminophen 325 Mg Tab) 650 mg PO Q4H PRN PRN Reason: Pain or Fever Stop: 07/28/23 02:52 Last Admin: 06/28/23 06:11 Dose: 650 mg Aspirin (Aspirin 81 Mg Chew) 81 mg PO DAILY [facility] Stop: 07/28/23 08:59 Last Admin: 06/28/23 08:29 Dose: 81 mg Atenolol (Atenolol 25 Mg Tablet) 25 mg PO BID GINA Stop: 07/28/23 08:59 Last Admin: 06/28/23 08:29 Dose: 25 mg Dextrose (Dextrose 50% 50 Ml Syringe) 25 - 50 ml IV UD PRN; Protocol PRN Reason: Hypoglycemia Protocol Stop: 07/28/23 02:52 Fenofibrate (Fenofibrate Nanocrystallized 145 Mg Tablet) 145 mg PO QAM [facility] Stop: 07/28/23 08:59 Last Admin: 06/28/23 08:29 Dose: 145 mg Furosemide (Furosemide 20 Mg Tab) 20 mg PO QAM [facility] Stop: 07/28/23 08:59 Last Admin: 06/28/23 08:29 Dose: 20 mg Glucagon (Glucagon For Inj 1 Mg Vial) 1 mg SQ UD PRN; Protocol PRN Reason: Hypoglycemia Protocol Stop: 07/28/23 02:52 Glucose (Glucose 10 Tab/Tube) 4 - 8 tab PO UD PRN; Protocol PRN Reason: Hypoglycemia Treatment Stop: 07/28/23 02:52 Glucose (Glucose 40% Gel 15 Gm Tube) 15 - 30 gm PO UD PRN; Protocol PRN Reason: Hypoglycemia Protocol Stop: 07/28/23 02:52 Sodium Chloride (Nss) 1,000 mls @ 80 mls/hr IV .[id number] [facility] Stop: 06/28/23 15:22 Last Admin: 06/28/23 04:59 Dose: 80 mls/hr Insulin Aspart (Insulin Aspart Per Unit Charge) 0 units SC ACHS [facility] Stop: 07/28/23 07:29 Last Admin: 06/28/23 09:20 Dose: 2 units Insulin Glargine (Lantus Per Unit Charge) 28 units SQ HS [facility] Stop: 07/28/23 20:59 Lisinopril ([facility] 10 Mg Tab) [facility] Stop: 07/28/23 09:59 Miscellaneous (Carbohydrates For Hypoglycemia ) 15 - 30 gm PO UD PRN PRN Reason: Hypoglycemia Protocol Stop: 07/28/23 02:52 Nitroglycerin (Nitroglycerin Sl 0.4 Mg/Tab Tab) 0.4 mg SL Q5M PRN PRN Reason: Chest Pain Stop: 07/28/23 02:52 Pantoprazole Sodium (Pantoprazole 40 Mg Tab) [facility] Stop: 07/28/23 08:59 Last Admin: 06/28/23 08:30 Dose: 40 mg Polyethylene Glycol (Polyethylene (Miralax) 17 Gm Pack) 17 gm PO DAILY PRN PRN Reason: Constipation Stop: 07/28/23 02:52 Rosuvastatin Calcium (Rosuvastatin Calcium 20 Mg Tab) 40 mg PO [facility] Stop: 07/28/23 08:59 Last Admin: 06/28/23 08:29 Dose: 40 mg Vitamin D (Cholecalciferol 1,000 Units 25 Mcg Tab) 2,000 units PO [facility] Stop: 07/28/23 08:59 Last Admin: 06/28/23 08:30 Dose: 2,000 units
[2023-06-28] MEDS: INSULIN ASPART PER UNIT CHARGE SC SCH ×4 (09:20→20:46)
[2023-06-28] MEDS: lisinopril 10 MG TAB PO SCH (11:06)
[2023-06-28 12:15] LABS: Procalcitonin 0.06 ng/ml (0-0.5)
[2023-06-28 12:21] LABS: Lyme Ab IgG w/WB Rflx Negative (Negative); Lyme Ab IgM w/WB Rflx Negative (Negative)
[2023-06-28 13:13] LABS: Appearance Urine Clear (Clear); Bacteria Urine Automated Negative (Negative); Bilirubin Urine Negative (Negative); Blood Urine Negative (Negative); Cast Urine Automated 0 /lpf (0-5); Color Urine Yellow; Glucose Urine UA Negative (Negative); Ketones Urine Negative (Negative); Leukocyte Esterase Urine 1+ (Negative); Nitrite Urine Negative (Negative); Protein Urine Negative (Negative); RBC Urine Automated 0-4 /hpf (0-4); Specific Gravity Urine 1.013 (1.000-1.030); Urobilinogen Urine Negative (Negative)
--- NOTE | 2023-06-28 14:18 | Communication Note ---
Date of Service: June 28, 2023 Post admit addendum: Ms Mccabe is a 62 year old woman with history notable for aortic stenosis s/p mechanical valve replacement in 2021, HTN, and DMTII with peripheral neuropathy who was admitted early this am due to instability and fall. Patient reports symptoms not as dizziness, but that she feels "imbalanced." Denies veritgo/double vision. Reports worsening neuropathy of upper and lower extremities, with improvement initally with B12 supplementation--however, feels worse over the course of the last months. Reports recent viral/cold like illness, but states this has been prior to her illness. She denies ear fullness/tinnitus/congestion. #Mechanical fall #Progressive peripheral neuropathy? history of gastric sleeve, potential for multiple deficiencies contributing to neuropathy: B1, B12, B6 B12 level 333, borderline low Degree of fall concerning, resulting in hematoma on scalp; MRI negative -Ordered MMA, homocysteine, folate -Procal negative -Lyme serologies ordered in case source of neuropathy, but denies exposure -Neuro consult -Start thiamine 100mg daily -PT/OT #Hypertension Difficult to determine if this is contributing factor. Continue atenolol 25 mg BID Resume lisinopril 10 mg daily #Aortic stenosis s/p mechanical valve 2021 #Chronic RBBB Monitor on tele Hold coumadin today INR goal 1.5.2.0
[2023-06-28] MEDS: THIAMINE HCL 100 MG TAB PO SCH (16:51)
[2023-06-28] MEDS: traMADol HCL 50 MG TABLET PO PRN (18:15)
[2023-06-28] MEDS: LANTUS PER UNIT CHARGE SQ SCH (20:52)
[2023-06-29] MEDS: ACETAMINOPHEN 325 MG TAB PO PRN ×2 (03:13→14:12)
[2023-06-29 05:59] LABS: Hematocrit (blood only) 43.4 % (37.0-47.0); Hemoglobin 14.5 g/dl (12.0-16.0); Mean Corpuscular Hemoglobin 29.1 pg (25.0-34.0); Mean Corpuscular Hgb Conc 33.4 g/dL (32.0-36.0); Mean Corpuscular Volume 87.1 fL (80.0-100.0); Mean Platelet Volume 9.8 fL (9.4-12.4); Platelet Count 222 K/uL (130-400); RDW Coefficient of Variation 13.6 % (11.5-14.5); RDW Standard Deviation 43.2 fL (36.4-46.3); Red Blood Count 4.98 M/uL (4.20-5.40); White Blood Count 6.42 K/ul (4.8-10.8)
[2023-06-29 06:09] LABS: BUN Creatinine Ratio 32.3 (10-20); Calcium 9.4 mg/dl (8.6-10.3); Creatinine Clr Calc Pharmacy 122.4 ml/min; Est GFR (African American) 111.1 ml/min; Est GFR (Non-African American) 95.8 ml/min; Magnesium 2.1 mg/dl (1.7-2.4); Potassium 4.6 mmol/L (3.5-5.1)
[2023-06-29] MEDS: traMADol HCL 50 MG TABLET PO PRN ×3 (06:20→20:31)
[2023-06-29 06:27] LABS: INR 2.3 (0.9-1.1); Prothrombin Time 23.9 Seconds (9.0-12.0)
--- NOTE | 2023-06-29 07:02 | Hospitalist Progress Note ---
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 Patient reports symptoms not as dizziness, but that she feels "imbalanced." Denies vertigo/double vision. Reports worsening neuropathy of upper and lower extremities, with improvement initally with B12 supplementation--however, feels worse over the course of the last months. Reports recent viral/cold like illness, but states this has been prior to her illness. She denies ear fullness/tinnitus/congestion. Labs have been unrevealing to date. Physical exam with out overt neurologic deficits. Vital signs stable and without arrhythmia on telemetry overnight. Plan for neurology consult. Cardiology following as well given cardiac history with valvae replacement and bundle branch block #Mechanical fall #Sensory gait ataxia #Progressive peripheral neuropathy? CT, MRI, Carotids WNL, no abnormality suggestive for degree of instability history of gastric sleeve, potential for multiple deficiencies contributing to neuropathy: B1, B12, B6 B12 level 333, borderline low; MMA and homocysteine pending Folate 16.27; RPR pending, procal negative CRP Degree of fall concerning, resulting in hematoma on scalp; MRI negative -Ordered MMA, homocysteine, folate -Procal negative, CRP mildly elevated -Lyme serologies pending -Neuro consult: will need OP EMG for assessment of neuropathy -Continue thiamine 100mg daily -PT/OT consult ordered, #Hypertension #HLD Difficult to determine if this is contributing factor. Continue atenolol 25 mg BID Continue lisinopril 10 mg daily Continue ASA Continue Statin, fenofibrate #Supratherapeutic INR #Aortic stenosis s/p mechanical valve 2021 #Chronic RBBB Monitor on tele Hold coumadin today; scheduled 10mg on Thurs, 7.5 every other day INR goal 1.5.2.0 Warfarin 5mg PO tonight, INR am #DMTII Glargine 28U qhs SSI DVT: Warfarin GI DMTII/Heart Healthy diet Bowel Prn Montior on tele Replace lytes prn Admission and Anticipated Discharge Date Admission Date: June 28, 2023 Subjective NAEO Patient denies any new concerns at this time overnight. States that she feels a bit worried about stigma if she requires an assistive device, but is willing to undergo assessment from PT/OT Denies any chest pain, palpitations, SOB or other acute concerns Review of Systems Review of Systems: All systems reviewed & are unremarkable except as noted in Subjective Physical Exam Constitutional: WD/WN, vitals as above Respiratory: normal respiratory effort, lungs clear to auscultation Cardiovascular: RRR, no murmur, no edema Musculoskeletal: no cyanosis or clubbing, extremities motor strength 5/5 Results & Data Results & Data Vital Signs (Past 12 Hours) Vital Signs Temp Pulse Pulse Resp BP Pulse Ox O2 Del Method 06/29/23 03:07 36.7 C 63 18 138/68 94 Room Air 06/29/23 00:12 65 06/28/23 22:57 36.6 C 69 18 158/86 H 95 Room Air 06/28/23 19:30 36.9 C 68 18 131/66 96 Room Air Laboratory Results Short CBC 06/29/23 Range/Units 05:25 WBC 6.42 (4.8-10.8) K/ul Hgb 14.5 (12.0-16.0) g/dl Hct 43.4 (37.0-47.0) % Plt Count 222 (130-400) K/uL BMP 06/29/23 05:25 Sodium 139 Potassium 4.6 Chloride 108 H Carbon Dioxide 27 BUN 21 Creatinine 0.65 Glucose 87 Calcium 9.4 Urine 06/28/23 Range/Units 12:30 Urine Color Yellow Urine Appearance Clear (Clear) Urine pH 7.0 (4.5-7.5) Ur Specific [place] 1.013 (1.000-1.030) Urine Protein Negative (Negative) Urine Glucose (UA) Negative (Negative) Diagnostic Findings MR brain wo/w con CLINICAL HISTORY: imbalance and falls. has mechanical aortic valve TECHNIQUE: Multiplanar and multisequence MR images of the brain were obtained prior to and following administration of gadolinium contrast. Comparison: Comparison is made to MRI brain 03/23/2022 FINDINGS: No abnormal restricted diffusion is identified. Foci of T2 and FLAIR hyperintensity are noted in the paraventricular areas consistent with chronic small vessel ischemic disease. Focal gliosis in the right frontal lobe is unchanged likely due to prior infarct. Ex vacuo ventriculomegaly and sulcal enlargement is noted compatible with diffuse volume loss. No mass or abnormal enhancement is seen. There is no mass effect or midline shift. There is no evidence of acute intraparenchymal hemorrhage. Scalp hematoma is seen over the right posterior calvarium. No extra axial fluid collections are seen. The corpus callosum, pituitary gland, and cerebellar tonsils appear grossly unremarkable. Flow voids of the major intracranial arterial vessels are identified. The imaged portions of the paranasal sinuses, mastoid air cells, and orbits are unremarkable. IMPRESSION: 1. No acute intracranial abnormalities. 2. Scalp hematoma is seen. ACT 112: Negative or not required by law. BILATERAL CAROTID DOPPLER STUDY HISTORY: near syncope COMPARISON: CTA neck 03/23/2022. TECHNIQUE: Real-time, grayscale, and color Doppler sonography of the carotid arteries was performed. Imaging reviewed in the transverse and longitudinal planes. All measurements were calculated based on NASCET criteria. FINDINGS: Antegrade flow is seen in the bilateral vertebral arteries. No significant calcified plaque within the carotid arteries. The peak systolic velocity within the right ICA is 70 cm/s. The right systolic ratio is 1.2. The peak systolic velocity within the left ICA is 74 cm/s. The left systolic ratio is 1.2. IMPRESSION: No hemodynamically significant stenosis seen within the carotid arteries. ACT 112: Negative or not required by law. Medications Administered Home Medications Medication Instructions Recorded Confirmed Last Taken atenolol 50 mg tablet 25 mg PO BID 01/24/22 06/28/23 02/08/22 25 cholecalciferol (vitamin D3) 50 2,000 unit PO QAM 01/24/22 06/28/23 02/08/22 mcg (2,000 unit) capsule (Vitamin 2000 D3) fenofibrate nanocrystallized 145 145 mg PO QAM 01/24/22 06/28/23 02/07/22 mg tablet 145 furosemide 20 mg tablet (Lasix) 20 mg PO QAM 01/24/22 06/28/23 02/05/22 20 insulin glargine 100 unit/mL (3 28 unit subcut HS 01/24/22 06/28/23 06/26/23 mL) subcutaneous pen (Lantus Solostar U-100 Insulin) metformin 500 mg tablet,extended 1,000 mg PO QAM 01/24/22 06/28/23 02/05/22 release 24 hr 1000 omeprazole 20 mg capsule,delayed 20 mg PO QAM 01/24/22 06/28/23 02/08/22 release 20 rosuvastatin 40 mg tablet 40 mg PO QAM 01/24/22 06/28/23 02/07/22 40 aspirin 81 mg chewable tablet 81 mg PO DAILY 06/28/23 06/28/23 Unknown semaglutide 2 mg/dose (8 mg/3 mL) 2 mg subcut WK 06/28/23 06/28/23 06/23/23 subcutaneous pen injector (Ozempic) warfarin 5 mg tablet 7.5 mg PO .6DAYS WEEK 06/28/23 06/28/23 06/26/23 warfarin 5 mg tablet 10 mg PO .Q THUR 06/28/23 06/28/23 Unknown Active Medications Generic Name Dose Route Start Last Admin Trade Name Freq PRN Reason Stop Dose Admin Acetaminophen 650 mg 06/28/23 02:53 06/29/23 03:13 Acetaminophen 325 Mg Tab PO 07/28/23 02:52 650 mg Q4H PRN Administration Pain or Fever Aspirin 81 mg 06/28/23 09:00 06/28/23 08:29 Aspirin 81 Mg Chew PO 07/28/23 08:59 81 mg DAILY GINA Administration Atenolol 25 mg 06/28/23 09:00 06/28/23 20:51 Atenolol 25 Mg Tablet PO 07/28/23 08:59 25 mg BID GINA Administration Fenofibrate 145 mg 06/28/23 09:00 06/28/23 08:29 Fenofibrate Nanocrystallized 145 Mg Tablet PO 07/28/23 08:59 145 mg QAM GINA Administration Furosemide 20 mg 06/28/23 09:00 06/28/23 08:29 Furosemide 20 Mg Tab PO 07/28/23 08:59 20 mg QAM GINA Administration Insulin Aspart 0 units 06/28/23 07:30 06/28/23 20:46 Insulin Aspart Per Unit Charge SC 07/28/23 07:29 Not Given ACHS GINA Insulin Glargine 28 units 06/28/23 21:00 06/28/23 20:52 Lantus Per Unit Charge SQ 07/28/23 20:59 28 units HS GINA Administration Lisinopril 10 mg 06/28/23 10:00 06/28/23 11:06 Lisinopril 10 Mg Tab PO 07/28/23 09:59 10 mg QAM GINA Administration Pantoprazole Sodium 40 mg 06/28/23 09:00 06/28/23 08:30 Pantoprazole 40 Mg Tab PO 07/28/23 08:59 40 mg QAM GINA Administration Rosuvastatin Calcium 40 mg 06/28/23 09:00 06/28/23 08:29 Rosuvastatin Calcium 20 Mg Tab PO 07/28/23 08:59 40 mg QAM GINA Administration Thiamine HCl 100 mg 06/28/23 14:30 06/28/23 16:51 Thiamine Hcl 100 Mg Tab PO 07/28/23 14:29 100 mg QAM GINA Administration Tramadol HCl 50 mg 06/28/23 17:19 06/29/23 06:20 Tramadol Hcl 50 Mg Tablet PO 07/28/23 17:18 50 mg Q6H PRN Administration Pain Vitamin D 2,000 units 06/28/23 09:00 06/28/23 08:30 Cholecalciferol 1,000 Units 25 Mcg Tab PO 07/28/23 08:59 2,000 units QAM GINA Administration
--- NOTE | 2023-06-29 08:07 | Neurology Consultation ---
Date of Consultation June 29, 2023 Assessment & Plan (1) Sensory ataxic gait: (2) Peripheral neuropathy: (3) Chronic cerebral ischemia: (4) HTN (hypertension): (5) Type 2 diabetes mellitus: Plan This patient has a gait disturbance leading to 2 falls on June 27. These were complicated by significant hypertension likely giving her some nonspecific lightheadedness. The 2nd fall, she fell and hit her head probably giving herself a mild concussion with some increased memory loss at that time. Currently she is functioning near baseline with her mental status and she has no speech issues or significant focal abnormalities. On exam she does have a polyneuropathy involving predominantly sensory fibers and large and small caliber. This neuropathy is likely due to diabetes and gives her a sensory ataxic gait. In addition, the patient has moderate old small-vessel ischemic disease and a previous small stroke. This is likely secondary to hypertension and diabetes as well. Small-vessel ischemia can affect memory and balance. MRI of the brain did not show any new stroke and I do not believe what she had was a TIA either. Recommendations: 1. Continue 81 mg aspirin tablet daily. 2. Control blood pressure as you are doing, aiming for a mean arterial pressure of 95-100 3. Control glucose as you are doing, trying to lower hemoglobin A1c less than 7 4. Continue rosuvastatin at 40 mg a day 5. I would like to perform EMG nerve conduction studies on all 4 limbs looking for polyneuropathy, radiculopathy, and peripheral mononeuropathy such as carpal tunnel syndrome. Unfortunately I can not do these as an inpatient and this must be scheduled as an outpatient. 6. Physical and occupational therapy consults. She needs gait training also 7. Otherwise I do not have any other testing or treatment recommendations to make from a neurologic standpoint. Please call me if I can be of further assistance. Overall, I spent a total of 80 minutes with this case including review of records, review of MRI and CT films, direct evaluation the patient at bedside, and discussing the case with the patient and RN at bedside and Dr. Ndiaye including differential diagnosis and treatment options History of Present Illness Reason for Consultation: Patient is a 62-year-old, who I was asked to see at the request of Dr. Ndiaye, for neurologic consultation regarding falling and other issues Requesting Physician: Dr. Ndiaye Attending Physician: Josefina Ndiaye MD History of Present Illness This patient has a 20 year history of type 2 diabetes, hypertension, and dyslipidemia. She underwent a gastric sleeve procedure 8-10 years ago (maximum weight 379 lb). Patient had aortic valve replacement (mechanical) in February of 2022 at [facility]. She is been on Coumadin and aspirin 81 mg daily ever since. At that time she would an MRI of the brain which showed old small-vessel ischemic disease and no acute stroke. CT angiography of the head and neck, at that time, was unremarkable without any vascular stenoses or anomalies. Patient has had numbness and tingling in her feet for at least 4 years. It started insidiously and has gradually gotten worse. Over time her hands have been involved as well. Apparently, she had an EMG nerve conduction study by Dr. Man about 2 years ago and he diagnosed neuropathy and carpal tunnel syndrome, according to the patient. I do not have this report. More recently the patient has had neck pain, right low back pain, and right hip pain. Her legs are typically week but the numbness seems to be little worse in the right leg compared to the left. She does not have pain in her limbs and does not have urinary or fecal incontinence. Over the last 1-1/2 years she is been getting progressively worse balance and this has been particularly worse over the last 2 weeks. She will note that she veers or sways to 1 side or the other when she walks. She can be very unsteady. If she bends down for a period of time and then stands up again she will get lightheaded for a few seconds. S he does not get vertigo. Patient states that she is had some nonspecific minor memory problems intermittently for about a year. She feels a little bit foggy and trouble concentrating at times. 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 She felt stressed and somewhat tired. Around 5:00 p.m. she stood up to walk and simply lost her balance falling to the left. She landed on her left hip did not hit her head. She got up and went back to work as usual. She noticed some electrical sensations in her legs that day coming and going several times lasting seconds at a time. Around 9:00 p.m. she lost her balance again, falling hitting her head. 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 Apparently her blood pressure was 180/100. She was brought to the emergency room. She arrived to the emergency room June 27 at 9:33 p.m., with a temperature of 36.8, pulse 72 and regular, respiratory rate 16, blood pressure 165/114, and O2 saturation 97% On exam she has no confusion or encephalopathy and no focal findings. CBC and Chem profile were unremarkable although the glucose was 118. TSH was 0.8. CT scan of the cervical spine showed degenerative changes diffusely. CT scan of the head was unremarkable. MRI of the brain showed an old small right frontal stroke and old small-vessel ischemic disease of a moderate nature. There was mild generalized atrophy and mild hydrocephalus ex vacuo. I have reviewed these films. And showed them to the patient. Carotid ultrasound was unremarkable. Today CBC Chem profile are unremarkable. She is been in normal sinus rhythm since admission in the 50s or 60s. Blood pressure this morning was 154/79. B12, folate, and Lyme antibody titers were unremarkable. Allergies Allergy/AdvReac Type Severity Reaction Status Date / Time Calcium Channel Blocking AdvReac Unknown CAN'T Verified 06/28/23 03:26 Agent Dilt REMEMBER WHICH MEDICATION OR REACTION. Home Medications Medication Instructions Recorded Confirmed Type atenolol 50 mg tablet 25 mg PO BID 01/24/22 06/28/23 History cholecalciferol (vitamin D3) 50 2,000 unit PO QAM 01/24/22 06/28/23 History mcg (2,000 unit) capsule (Vitamin D3) fenofibrate nanocrystallized 145 145 mg PO QAM 01/24/22 06/28/23 History mg tablet furosemide 20 mg tablet (Lasix) 20 mg PO QAM 01/24/22 06/28/23 History insulin glargine 100 unit/mL (3 28 unit subcut HS 01/24/22 06/28/23 History mL) subcutaneous pen (Lantus Solostar U-100 Insulin) metformin 500 mg tablet,extended 1,000 mg PO QAM 01/24/22 06/28/23 History release 24 hr omeprazole 20 mg capsule,delayed 20 mg PO QAM 01/24/22 06/28/23 History release rosuvastatin 40 mg tablet 40 mg PO QAM 01/24/22 06/28/23 History aspirin 81 mg chewable tablet 81 mg PO DAILY 06/28/23 06/28/23 History semaglutide 2 mg/dose (8 mg/3 mL) 2 mg subcut WK 06/28/23 06/28/23 History subcutaneous pen injector (Ozempic) warfarin 5 mg tablet 7.5 mg PO .6DAYS WEEK 06/28/23 06/28/23 History warfarin 5 mg tablet 10 mg PO .Q THUR 06/28/23 06/28/23 History Patient History Medical History Aortic stenosis Echo performed in December 2021 at [facility] showed EF of 65 to 69%. Aortic valve moderately calcified with severe aortic stenosis. 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 Feels Safe at Home: Yes Safety Concerns: Feels Safe At This Time Assistive Devices: CPAP and Hearing Aid - Bilateral Review of Systems Constitutional: no fever, no fatigue and no weakness Eyes: no diplopia, no eye pain and no worsening vision Ear, Nose, Mouth, Throat: no ear pain, no tinnitus, no hearing loss, no dizziness, no snoring, no hoarseness and no dysphagia Respiratory: no cough and no dyspnea Cardiovascular: no chest pain, no palpitations and no lightheadedness Gastrointestinal: no abdominal pain, no nausea and no vomiting Genitourinary: no dysuria, no urinary frequency and no urinary incontinence Musculoskeletal: + back pain and + neck pain; no radicular pain, no joint pain and no myalgia Integumentary: no rash and no lesions Neurologic: + gait abnormality and + numbness; no localized weakness, no generalized weakness, no tingling, no tremor(s), no abnormal movements, no headache(s), no abnormal speech, no confusion and no memory loss Psychiatric: no depression, no irritability, no anxiety, no difficulty concentrating, no confusion and no hallucinations Endocrine: no fatigue and no flushing Hematologic / Lymphatic: no easy bleeding and no easy bruising Allergy / Immunological: no urticaria and no problem reported Exam (Neuro) Physical Exam: The patient is right-handed. The patient is awake, alert, and attentive. Speech is normal without any aphasia or dysarthria. The patient can name objects, repeat phrases, and has normal spontaneous speech. Mentation and thought processes are intact, with orientation to person, place and time, and normal fund of knowledge. Attention and concentration are normal. Mood and affect are normal and appropriate. General appearance and grooming are normal. Short and long-term memory are intact. The discs are sharp with positive venous pulsations bilaterally. There are no exudates, hemorrhages, or blood vessel changes seen. Pupils are 4 mm bilaterally and reactive to light. Extraocular eye muscles are intact without nystagmus. Visual acuity and visual arteaga seem normal grossly to confrontation. There are no deficits to sensation in the face in all 3 distributions of the fifth cranial nerve bilaterally. Corneal reflexes are positive bilaterally. Facial strength and symmetry was normal bilaterally. She has decreased hearing and normally wears a hearing (which she does not have it today). Palate moves well without asymmetry. There is normal sternocleidomastoid and trapezius (shoulder shrug) strength bilaterally. Tongue is midline with good strength bilaterally. Neck has a full range of motion without discomfort. There are no cervical bruits bilaterally. There are no cranial or ocular bruits. Cervical, thoracic, and lumbar spine have some mild tenderness to palpation, particularly in the right cervical paraspinal muscles. Gait is slightly wide-based and very cautious. Which she stands and puts her feet together she lose his balance. This is further deteriorated with her eyes closed. With outstretched arms there is no drift. There are no resting, postural, or action tremors. There is no ataxia with finger to nose testing. There is good facility in the hands. No other abnormal involuntary movements are noted. Motor strength is 5/5 diffusely in the arms bilaterally including deltoids, biceps, triceps, brachioradialis, wrist flexors and extensors, front sight attacher, and intrinsic hand muscles. Motor strength is 5/5 diffusely in the legs bilaterally including hip flexors, quadriceps, hamstrings, gastrocnemius, tibialis anterior, tibialis posterior, and Peroneii muscles. Toe extensors are normal and there is good bulk in the extensor digitorum brevis muscles bilaterally. The limbs have good tone without rigidity or spasticity. There is no atrophy noted in the muscles. Muscle bulk is normal, there is no tenderness to palpation, no myotonia to percussion, and no fasciculations seen. Sensory examination reveals a stocking decreased pinprick sense loss in the feet bilaterally. Reflexes are 1/4 in the biceps, triceps, brachioradialis, quadriceps, and Achilles tendons bilaterally. There is no clonus bilaterally. Toes are downgoing with plantar stimulation bilaterally. Peripheral pulses are present and of normal quality distally in all 4 limbs. There is no peripheral edema noted in the limbs. Results & Data Vital Signs (Past 12 Hours) Vital Signs Temp Pulse Pulse Resp BP Pulse Ox O2 Del Method 06/29/23 03:07 36.7 C 63 18 138/68 94 Room Air 06/29/23 00:12 65 06/28/23 22:57 36.6 C 69 18 158/86 H 95 Room Air PG Care Time/CCT Total # of Minutes Spent Total Time Spent with Patient: Total time spent is greater than 50% in coordination of care (as documented) at patient's floor/unit and/or counseling patient: Coding Level of Care Code 78784 IN/OBS CONSULT LVL 5,80M Diagnoses Sensory ataxic gait R26.0 Peripheral neuropathy G62.9 Chronic cerebral ischemia I67.82 HTN (hypertension) I10 Type 2 diabetes mellitus E11.9 Time Spent (min) 80
[2023-06-29] MEDS: INSULIN ASPART PER UNIT CHARGE SC SCH ×5 (08:21→20:31)
[2023-06-29] MEDS: PANTOprazole 40 MG TAB PO SCH (08:22)
[2023-06-29] MEDS: FUROSEMIDE 20 MG TAB PO SCH (08:22)
[2023-06-29] MEDS: THIAMINE HCL 100 MG TAB PO SCH (08:22)
[2023-06-29] MEDS: CHOLECALCIFEROL 1,000 UNITS 25 MCG TAB PO SCH (08:22)
[2023-06-29] MEDS: ATENOLOL 25 MG TABLET PO SCH ×2 (08:22→20:07)
[2023-06-29] MEDS: FENOFIBRATE NANOCRYSTALLIZED 145 MG TABLET PO SCH (08:22)
[2023-06-29] MEDS: ROSUVASTATIN CALCIUM 20 MG TAB PO SCH (08:22)
[2023-06-29] MEDS: lisinopril 10 MG TAB PO SCH (08:22)
[2023-06-29] MEDS: ASPIRIN 81 MG CHEW PO SCH (11:14)
--- NOTE | 2023-06-29 11:26 | Cardiology Progress Note ---
Date of Service June 29, 2023 Assessment & Plan (1) HTN (hypertension): (2) H/O mechanical aortic valve replacement: (3) RBBB: Plan Patient admitted after 2 falls secondary to gait instability, worsening over the last few weeks. ?worsening peripheral neuropathy Head CT and Brain MRI without acute changes. 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 No hemorrhage while on Coumadin. Scalp hematoma only noted. Blood pressure improved with addition of 10 lisinopril. (previously on 20-40 mg prior to aortic valve replacement). Titrate lisinopril to 20 mg daily. Continue atenolol 25 mg BID She is also diabetic and would benefit from MYNOR/ARB Chronic RBBB unchanged. she does have conduction system disease, continue on telemetry. She denies associated dizziness. Consider outpatient monitor. Echo with preserved EF and normal functioning mechanical AVR. Negative HS troponin. Restart Coumadin. Continue low-dose aspirin. Goal INR with Onx Valve is 1.5-2.0 Admission and Anticipated Discharge Date Admission Date: June 28, 2023 Subjective Patient seen examined the bedside. Feeling well today. Blood pressure improved with addition of lisinopril. Denies chest pain or shortness of breath. Telemetry reveals sinus rhythm with a right bundle branch block. Heart rate 60- 70s. No dysrhythmias. MRI brain demonstrating no acute intracranial abno rmalities with scalp hematoma. There is evidence of an old right frontal lobe infarct. Warfarin held yesterday for supratherapeutic INR. Review of Systems Review of Systems: All systems reviewed & are unremarkable except as noted in Subjective Physical Exam Constitutional: well nourished; no acute distress Respiratory: no respiratory distress, no labored breathing and no retractions Auscultation: no crackles, no rales, no rhonchi and no wheezes Cardiovascular: Rate/Rhythm: regular rate and regular rhythm Heart Sounds: normal S1, normal S2, + click (S2 click) and + murmur (2/6 systolic ejection murmur) Gastrointestinal (Abdomen): Inspection/Auscultation: abdomen normal to inspection and normal bowel sounds; abdomen not distended Percussion/Palpation: abdomen soft; abdomen nontender, no guarding and abdomen not rigid Neurologic: CN's II-XI intact bilaterally and moves all extremities; no focal motor deficits Results & Data Vital Signs (Past 12 Hours) Vital Signs Temp Pulse Pulse Resp BP Pulse Ox O2 Del Method 09/30/23 08:00 65 06/29/23 08:00 36.5 C 65 16 154/79 H 97 Room Air 06/29/23 03:07 36.7 C 63 18 138/68 94 Room Air 06/29/23 00:12 65 Laboratory Results Cardiac Enzymes 06/28/23 Range/Units 11:15 Troponin I High Sens 5.6 (0-14) pg/ml Coagulation 06/29/23 Range/Units 05:25 PT 23.9 H (9.0-12.0) Seconds CBC 06/29/23 Range/Units 05:25 WBC 6.42 (4.8-10.8) K/ul RBC 4.98 (4.20-5.40) M/uL Hgb 14.5 (12.0-16.0) g/dl Hct 43.4 (37.0-47.0) % Plt Count 222 (130-400) K/uL Comprehensive Metabolic Panel 06/29/23 Range/Units 05:25 Sodium 139 (136-145) mmol/L Potassium 4.6 (3.5-5.1) mmol/L Chloride 108 H (98-107) mmol/L Carbon Dioxide 27 (21-32) mmol/L BUN 21 (6-23) mg/dl Creatinine 0.65 (0.6-1.2) mg/dl Glucose 87 (70-99(Fasting)) mg/dl Calcium 9.4 (8.6-10.3) mg/dl Intake and Output 06/28/23 06/29/23 06/29/23 22:59 06:59 14:59 Intake Total 1600.667 / 1600.667 Output Total 1200 / 1200 Balance 400.667 / 400.667 Intake: IV 850.667 / 850.667 Sodium Chloride 0.9% 1,000 ml @ 850.667 / 850.667 80 mls/hr IV .[id number] [facility] Rx#: [id number] Oral 750 / 750 Output: Urine 1200 / 1200 # Bowel Movements 0 / 0 Other: # Unmeasured Voids 1 1
[2023-06-29] MEDS ORDERED: lisinopril 10 MG TAB PO ONE (11:27)
[2023-06-29] MEDS ORDERED: WARFARIN SOD 5 MG TAB PO SCH (16:00)
--- NOTE | 2023-06-29 19:42 | Electrocardiogram Report ---
Test Reason : Blood Pressure : / mmHG Vent. Rate : 063 BPM Atrial Rate : 063 BPM P-R Int : 210 ms QRS Dur : 172 ms QT Int : 466 ms P-R-T Axes : 020 018 004 degrees QTc Int : 476 ms Sinus rhythm with 1st degree A-V block Right bundle branch block Inferior infarct (cited on or before 24-JAN-2022) Abnormal ECG When compared with ECG of 23-MAR-2022 17:01, Premature ventricular complexes are no longer Present Confirmed by Jeffry Franco ([id number]) on 06/29/2023 7:42:36 PM Referred By: REFERRED SELF Confirmed By:Jeffry Franco
[2023-06-29] MEDS: LANTUS PER UNIT CHARGE SQ SCH (20:30)
--- NOTE | 2023-06-29 23:08 | Electrocardiogram Report ---
Test Reason : Blood Pressure : / mmHG Vent. Rate : 065 BPM Atrial Rate : 065 BPM P-R Int : 226 ms QRS Dur : 168 ms QT Int : 462 ms P-R-T Axes : 050 053 036 degrees QTc Int : 480 ms Sinus rhythm with 1st degree A-V block Right bundle branch block Abnormal ECG When compared with ECG of 27-JUN-2023 22:06, Nonspecific T wave abnormality has replaced inverted T waves in Inferior leads Confirmed by Jeffry Franco ([id number] on 06/29/2023 11:07:46 PM Referred By: REFERRED SELF Confirmed By:Jeffry Franco
[2023-06-30] MEDS: traMADol HCL 50 MG TABLET PO PRN (04:54)
[2023-06-30] MEDS: ACETAMINOPHEN 325 MG TAB PO PRN ×3 (08:20→20:52)
[2023-06-30] MEDS: ASPIRIN 81 MG CHEW PO SCH ×2 (08:20→10:01)
[2023-06-30] MEDS: FUROSEMIDE 20 MG TAB PO SCH ×2 (08:21→10:02)
[2023-06-30] MEDS: ATENOLOL 25 MG TABLET PO SCH ×3 (08:21→20:59)
[2023-06-30] MEDS: THIAMINE HCL 100 MG TAB PO SCH ×2 (08:21→10:02)
[2023-06-30] MEDS: FENOFIBRATE NANOCRYSTALLIZED 145 MG TABLET PO SCH ×2 (08:22→10:02)
[2023-06-30] MEDS: PANTOprazole 40 MG TAB PO SCH ×2 (08:22→10:03)
[2023-06-30] MEDS: lisinopril 20 MG TAB PO SCH ×2 (08:22→10:02)
[2023-06-30] MEDS: ROSUVASTATIN CALCIUM 20 MG TAB PO SCH ×2 (08:22→10:00)
[2023-06-30] MEDS: CHOLECALCIFEROL 1,000 UNITS 25 MCG TAB PO SCH ×2 (08:22→10:01)
[2023-06-30] MEDS: INSULIN ASPART PER UNIT CHARGE SC SCH ×4 (08:29→20:44)
[2023-06-30 08:44] LABS: BUN Creatinine Ratio 32.9 (10-20); Calcium 9.7 mg/dl (8.6-10.3); Creatinine Clr Calc Pharmacy 113.8 ml/min; Est GFR (African American) 108.4 ml/min; Est GFR (Non-African American) 93.5 ml/min; Potassium 4.2 mmol/L (3.5-5.1)
[2023-06-30 08:46] LABS: INR 1.7 (0.9-1.1); Prothrombin Time 17.7 Seconds (9.0-12.0)
--- NOTE | 2023-06-30 12:43 | Hospitalist Progress Note ---
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 Patient reports symptoms not as dizziness, but that she feels "imbalanced." Denies vertigo/double vision. Reports worsening neuropathy of upper and lower extremities, with improvement initally with B12 supplementation--however, feels worse over the course of the last months. Reports recent viral/cold like illness, but states this has been prior to her illness. She denies ear fullness/tinnitus/congestion. Labs have been unrevealing to date. Physical exam with out overt neurologic deficits. Vital signs stable and without arrhythmia on telemetry overnight. Cardiology following as well given cardiac history with valvae replacement and bundle branch block, however, this does not appear cardiogenic in nature. Neurology on consult and noted significant sensory ataxia on exam, which was confirmed by PT who recommends an acute inpatient rehab. #Mechanical fall #Sensory gait ataxia #Progressive peripheral neuropathy? CT, MRI, Carotids WNL, no abnormality suggestive for degree of instability history of gastric sleeve, potential for multiple deficiencies contributing to neuropathy: B1, B12, B6 B12 level 333, borderline low; MMA and homocysteine pending, B6 pending, folate WNL Folate 16.27; RPR pending, procal negative CRP Degree of fall concerning, resulting in hematoma on scalp; MRI negative -Procal negative, CRP mildly elevated -Lyme serologies negative -Neuro consult: will need OP EMG for assessment of neuropathy -Continue thiamine 100mg daily -PT/OT: acute inpatient rehab #Hypertension #HLD Difficult to determine if this is contributing factor. Continue atenolol 25 mg BID Continue lisinopril 10 mg daily Continue ASA Continue Statin, fenofibrate #Supratherapeutic INR #Aortic stenosis s/p mechanical valve 2021 #Chronic RBBB Monitor on tele Hold coumadin today; scheduled 10mg on Th, 7.5 every other day INR goal 1.5.2.0 Warfarin 7.5mg PO tonight, INR am #DMTII Glargine 28U qhs SSI DVT: Warfarin GI DMTII/Heart Healthy diet Bowel Prn Montior on tele, plan for inpatient rehab Replace lytes prn Admission and Anticipated Discharge Date Admission Date: June 28, 2023 Subjective NAEO Reports feeling well overall, but nervous with ambulation as ataxia limits mobility Review of Systems Review of Systems: All systems reviewed & are unremarkable except as noted in Subjective Physical Exam Constitutional: WD/WN, vitals as above Respiratory: normal respiratory effort, lungs clear to auscultation Cardiovascular: RRR, no murmur, no edema Results & Data Results & Data Vital Signs (Past 12 Hours) Vital Signs Temp Pulse Pulse Pulse Resp BP Pulse Ox 06/30/23 11:38 36.5 C 65 18 146/78 H 96 06/30/23 07:45 58 L 06/30/23 09:21 179/94 H 06/30/23 07:31 36.6 C 67 16 144/67 H 98 06/30/23 03:31 36.9 C 75 16 155/77 H 94 O2 Del Method 06/30/23 11:38 Room Air 06/30/23 07:45 06/30/23 09:21 06/30/23 07:31 Room Air 06/30/23 03:31 Room Air Laboratory Results [facility] 06/30/23 07:42 Sodium 140 Potassium 4.2 Chloride 106 Carbon Dioxide 28 BUN 23 Creatinine 0.70 Glucose 98 Calcium 9.7 Medications Administered Home Medications Medication Instructions Recorded Confirmed Last Taken atenolol 50 mg tablet 25 mg PO BID 01/24/22 06/28/23 02/08/22 25 cholecalciferol (vitamin D3) 50 2,000 unit PO QAM 01/24/22 06/28/23 02/08/22 mcg (2,000 unit) capsule (Vitamin 2000 D3) fenofibrate nanocrystallized 145 145 mg PO QAM 01/24/22 06/28/23 02/07/22 mg tablet 145 furosemide 20 mg tablet (Lasix) 20 mg PO QAM 01/24/22 06/28/23 02/05/22 20 insulin glargine 100 unit/mL (3 28 unit subcut HS 01/24/22 06/28/23 06/26/23 mL) subcutaneous pen (Lantus Solostar U-100 Insulin) metformin 500 mg tablet,extended 1,000 mg PO QAM 01/24/22 06/28/23 02/05/22 release 24 hr 1000 omeprazole 20 mg capsule,delayed 20 mg PO QAM 01/24/22 06/28/23 02/08/22 release 20 rosuvastatin 40 mg tablet 40 mg PO QAM 01/24/22 06/28/23 02/07/22 40 aspirin 81 mg chewable tablet 81 mg PO DAILY 06/28/23 06/28/23 Unknown semaglutide 2 mg/dose (8 mg/3 mL) 2 mg subcut WK 06/28/23 06/28/23 06/23/23 subcutaneous pen injector (Ozempic) warfarin 5 mg tablet 7.5 mg PO .6DAYS WEEK 06/28/23 06/28/23 06/26/23 warfarin 5 mg tablet 10 mg PO .Q THUR 06/28/23 06/28/23 Unknown lisinopril 20 mg tablet 20 mg PO QAM #30 tabs 06/30/23 Unknown thiamine HCl (vitamin B1) 100 mg 100 mg PO QAM #30 tabs 06/30/23 Unknown tablet Active Medications Generic Name Dose Route Start Last Admin Trade Name Freq PRN Reason Stop Dose Admin Acetaminophen 650 mg 06/28/23 02:53 06/30/23 10:01 Acetaminophen 325 Mg Tab PO 07/28/23 02:52 650 mg Q4H PRN Administration Pain or Fever Aspirin 81 mg 06/28/23 09:00 06/30/23 10:01 Aspirin 81 Mg Chew PO 07/28/23 08:59 81 mg DAILY GINA Administration Atenolol 25 mg 06/28/23 09:00 06/30/23 10:03 Atenolol 25 Mg Tablet PO 07/28/23 08:59 25 mg BID GINA Administration Fenofibrate 145 mg 06/28/23 09:00 06/30/23 10:02 Fenofibrate Nanocrystallized 145 Mg Tablet PO 07/28/23 08:59 145 mg QAM GINA Administration Furosemide 20 mg 06/28/23 09:00 06/30/23 10:02 Furosemide 20 Mg Tab PO 07/28/23 08:59 20 mg QAM GINA Administration Insulin Aspart 0 units 06/28/23 07:30 06/30/23 11:59 Insulin Aspart Per Unit Charge SC 07/28/23 07:29 Not Given ACHS [facility] Insulin Glargine 28 units 06/28/23 21:00 06/29/23 20:30 Lantus Per Unit Charge SQ 07/28/23 20:59 28 units HS GINA Administration Lisinopril 20 mg 06/30/23 09:00 06/30/23 10:02 Lisinopril 20 Mg Tab PO 07/30/23 08:59 20 mg QAM [facility] Administration Pantoprazole Sodium 40 mg 06/28/23 09:00 06/30/23 10:03 Pantoprazole 40 Mg Tab PO 07/28/23 08:59 40 mg QAM [facility] Administration Rosuvastatin Calcium 40 mg 06/28/23 09:00 06/30/23 10:00 Rosuvastatin Calcium 20 Mg Tab PO 07/28/23 08:59 40 mg QAM GINA Administration Thiamine HCl 100 mg 06/28/23 14:30 06/30/23 10:02 Thiamine Hcl 100 Mg Tab PO 07/28/23 14:29 [facility] [place] Administration Tramadol HCl 50 mg 06/28/23 17:19 06/30/23 04:54 Tramadol Hcl 50 Mg Tablet PO 07/28/23 17:18 50 mg Q6H PRN Administration Pain Vitamin D 2,000 units 06/28/23 09:00 06/30/23 10:01 Cholecalciferol 1,000 Units 25 Mcg Tab PO 07/28/23 08:59 2,000 [facility] [place] Administration Warfarin Sodium 5 mg 06/29/23 16:00 06/29/23 16:04 Warfarin Sod 5 Mg Tab PO 07/29/23 15:59 5 mg DAILY@1600 [facility] Administration
--- NOTE | 2023-06-30 15:51 | Electrocardiogram Report ---
Test Reason : Blood Pressure : / mmHG Vent. Rate : 061 BPM Atrial Rate : 061 BPM P-R Int : 230 ms QRS Dur : 184 ms QT Int : 468 ms P-R-T Axes : 041 039 020 degrees QTc Int : 471 ms Sinus rhythm with 1st degree A-V block Right bundle branch block Abnormal ECG When compared with ECG of 29-JUN-2023 05:57, No significant change was found Confirmed by Jaylon House ([id number] on 06/30/2023 3:50:44 PM Referred By: REFERRED SELF Confirmed By:Jaylon House
[2023-06-30] MEDS: WARFARIN SOD 7.5 MG TAB PO SCH (16:46)
[2023-06-30] MEDS: LANTUS PER UNIT CHARGE SQ SCH (20:45)
[2023-07-01] MEDS: traMADol HCL 50 MG TABLET PO PRN (05:35)
[2023-07-01 07:21] LABS: Hematocrit (blood only) 45.8 % (37.0-47.0); Hemoglobin 14.7 g/dl (12.0-16.0); Mean Corpuscular Hemoglobin 28.7 pg (25.0-34.0); Mean Corpuscular Hgb Conc 32.1 g/dL (32.0-36.0); Mean Corpuscular Volume 89.5 fL (80.0-100.0); Mean Platelet Volume 9.9 fL (9.4-12.4); Platelet Count 267 K/uL (130-400); RDW Coefficient of Variation 13.3 % (11.5-14.5); RDW Standard Deviation 43.5 fL (36.4-46.3); Red Blood Count 5.12 M/uL (4.20-5.40)
[2023-07-01 07:37] LABS: Calcium 9.5 mg/dl (8.6-10.3); Creatinine Clr Calc Pharmacy 98.3 ml/min; Est GFR (African American) 90.9 ml/min; Est GFR (Non-African American) 78.4 ml/min; Potassium 4.7 mmol/L (3.5-5.1)
[2023-07-01 07:52] LABS: INR 1.8 (0.9-1.1); Prothrombin Time 19.1 Seconds (9.0-12.0)
[2023-07-01] MEDS: INSULIN ASPART PER UNIT CHARGE SC SCH ×4 (08:15→21:00)
[2023-07-01] MEDS: CHOLECALCIFEROL 1,000 UNITS 25 MCG TAB PO SCH (08:59)
[2023-07-01] MEDS: PANTOprazole 40 MG TAB PO SCH (08:59)
[2023-07-01] MEDS: FENOFIBRATE NANOCRYSTALLIZED 145 MG TABLET PO SCH (09:23)
[2023-07-01] MEDS: THIAMINE HCL 100 MG TAB PO SCH (09:23)
[2023-07-01] MEDS: lisinopril 20 MG TAB PO SCH (09:23)
[2023-07-01] MEDS: ROSUVASTATIN CALCIUM 20 MG TAB PO SCH (09:23)
[2023-07-01] MEDS: FUROSEMIDE 20 MG TAB PO SCH (09:24)
[2023-07-01] MEDS: ATENOLOL 25 MG TABLET PO SCH ×2 (09:27→20:59)
[2023-07-01] MEDS: ASPIRIN 81 MG CHEW PO SCH (09:27)
[2023-07-01] MEDS ORDERED: ACETAMINOPHEN 500 MG TAB PO PRN (10:59)
[2023-07-01] MEDS ORDERED: SEMAGLUTIDE INJ SQ SCH (13:45)
--- NOTE | 2023-07-01 14:44 | Hospitalist Progress Note ---
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 Patient reports symptoms not as dizziness, but that she feels "imbalanced." Denies vertigo/double vision. Reports worsening neuropathy of upper and lower extremities, with improvement initially with B12 supplementation--however, feels worse over the course of the last months. Reports recent viral/cold like illness, but states this has been prior to her illness. She denies ear fullness/tinnitus/congestion. Labs have been unrevealing to date. Physical exam with out overt neurologic deficits. Vital signs stable and without arrhythmia on telemetry overnight. Cardiology following as well given cardiac history with valve replacement and bundle branch block, however, this does not appear cardiogenic in nature. Neurology on consult and noted significant sensory ataxia on exam, which was confirmed by PT who recommends an acute inpatient rehab. Mechanical fall Sensory gait ataxia ? Progressive peripheral neuropathy CT, MRI, Carotids WNL Fall resulted in scalp hematoma History of gastric sleeve, potential for multiple deficiencies contributing to neuropathy: B1, B12, B6 B12 level 333, borderline low; MMA and homocysteine pending, B6 pending, folate WNL ID pending, procal negative, CRP 0.6 Lyme serologies negative Neuro consult: will need OP EMG for assessment of neuropathy Continue thiamine 100mg daily PT/OT: acute inpatient rehab Hypertension HLD Difficult to determine if this is contributing factor. Continue atenolol 25 mg BI, lisinopril 10 mg daily Continue ASA, Statin, fenofibrate Aortic stenosis s/p OnX mechanical valve February 2022 Chronic RBBB Mildly supratherapeutic INR during admission, Coumadin adjusted INR 1.8 today INR goal 1.5 - 2.0 due to OnX valve Continue Coumadin 7.5 mg daily DM type II HgbA1c 7.3 Blood sugars controlled, continue glargine 28U qhs. NovoLog per protocol while hospitalized. DVT prophylaxis On Coumadin with therapeutic INR Dispo -medically stable for discharge, awaiting approval for [facility]. Patient seen in collaboration with Dr. Ndiaye. Admission and Anticipated Discharge Date Admission Date: June 28, 2023 Supervising Physician Co-Signing Physician Notes I have seen and discussed the case with the collaborating Zoe CARTAGENA. I agree with the above H&P. I have reviewed and confirmed the patients medical history, the findings on physical examination, and the patients diagnosis and treatment plan with Zoe CARTAGENA and agree with the information documented. In short, Ms. Mccabe is a woman with progressive peripheral neuropathy admitted for mechanical falls and found to have sensory ataxic gait. Workup to date has been otherwise negative. Pending approval for inpatient rehab with [facility]. Subjective Follow-up for mechanical fall, ataxia. Patient seen and examined. Reports ongoing gait issues with BLLE numbness and tingling, no new complaints. Eager to be discharged to rehab. Physical Exam Constitutional: WD/WN, vitals as above no acute distress Respiratory: normal respiratory effort, lungs clear to auscultation Cardiovascular: Rate/Rhythm: regular rate and regular rhythm Vessels: normal peripheral pulses Extremities: no edema Gastrointestinal (Abdomen): Percussion/Palpation: abdomen soft; abdomen nontender Musculoskeletal: Strength strong and equal BLE Skin: no rashes, warm and dry Neurologic: no focal motor deficits Psychiatric: A+Ox3, euthymic affect Results & Data Results & Data Vital Signs (Past 12 Hours) Vital Signs Temp Pulse Resp BP Pulse Ox O2 Del Method 07/01/23 09:28 74 07/01/23 07:14 36.5 C 57 L 16 126/70 94 Room Air Laboratory Results Short CBC 07/01/23 Range/Units 06:44 WBC 7.00 (4.8-10.8) K/ul Hgb 14.7 (12.0-16.0) g/dl Hct 45.8 (37.0-47.0) % Plt Count 267 (130-400) K/uL BMP 07/01/23 06:44 Sodium 140 Potassium 4.7 Chloride 107 Carbon Dioxide 31 BUN 30 H Creatinine 0.81 Glucose 89 Calcium 9.5
[2023-07-01] MEDS ORDERED: [UNRECOGNIZED DRUG - REMARK] SQ SCH (15:15)
[2023-07-01] MEDS: WARFARIN SOD 7.5 MG TAB PO SCH (15:46)
[2023-07-01] MEDS: LANTUS PER UNIT CHARGE SQ SCH (21:08)
[2023-07-02] MEDS: PANTOprazole 40 MG TAB PO SCH (05:45)
[2023-07-02] MEDS: FUROSEMIDE 20 MG TAB PO SCH (09:05)
[2023-07-02] MEDS: ROSUVASTATIN CALCIUM 20 MG TAB PO SCH (09:05)
[2023-07-02] MEDS: CHOLECALCIFEROL 1,000 UNITS 25 MCG TAB PO SCH (09:05)
[2023-07-02] MEDS: THIAMINE HCL 100 MG TAB PO SCH (09:05)
[2023-07-02] MEDS: FENOFIBRATE NANOCRYSTALLIZED 145 MG TABLET PO SCH (09:06)
[2023-07-02] MEDS: ATENOLOL 25 MG TABLET PO SCH ×2 (09:06→21:06)
[2023-07-02] MEDS: lisinopril 20 MG TAB PO SCH (09:06)
[2023-07-02] MEDS: ASPIRIN 81 MG CHEW PO SCH (09:07)
[2023-07-02] MEDS: INSULIN ASPART PER UNIT CHARGE SC SCH ×4 (09:08→21:07)
[2023-07-02] MEDS ORDERED: ALUMINUM/MAGNESIUM/SIMETH (MAALOX MAX) 30 ML UDC PO PRN (09:40)
[2023-07-02] MEDS: WARFARIN SOD 7.5 MG TAB PO SCH (16:08)
--- NOTE | 2023-07-02 16:18 | Hospitalist Progress Note ---
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 Patient reports symptoms not as dizziness, but that she feels "imbalanced." Denies vertigo/double vision. Reports worsening neuropathy of upper and lower extremities, with improvement initially with B12 supplementation--however, feels worse over the course of the last months. Reports recent viral/cold like illness, but states this has been prior to her illness. She denies ear fullness/tinnitus/congestion. Labs have been unrevealing to date. Physical exam with out overt neurologic deficits. Vital signs stable and without arrhythmia on telemetry overnight. Cardiology following as well given cardiac history with valve replacement and bundle branch block, however, this does not appear cardiogenic in nature. Neurology on consult and noted significant sensory ataxia on exam, which was confirmed by PT who recommends an acute inpatient rehab. Mechanical fall Sensory gait ataxia ? Progressive peripheral neuropathy CT, MRI, Carotids WNL Fall resulted in scalp hematoma History of gastric sleeve, potential for multiple deficiencies contributing to neuropathy: B1, B12, B6 B12 level 333, borderline low; MMA 120, homocysteine 13.6, B6 pending, folate WNL RPR nonreactive, procal negative, CRP 0.6 Lyme serologies negative, no evidence of inclusion bodies on Babesia and Anaplasma smears, confirmatory testing pending Neuro consult: will need OP EMG for assessment of neuropathy Continue thiamine 100mg daily PT/OT: acute inpatient rehab. [facility]. Hypertension HLD Difficult to determine if this is contributing factor. Continue atenolol 25 mg BI, lisinopril 10 mg daily Continue ASA, Statin, fenofibrate Aortic stenosis s/p OnX mechanical valve February 2022 Chronic RBBB Mildly supratherapeutic INR during admission, Coumadin adjusted INR 1.8 10/2 INR goal 1.5 - 2.0 due to OnX valve Continue Coumadin 7.5 mg daily DM type II HgbA1c 7.3 Blood sugars controlled, continue glargine 28U qhs. NovoLog per protocol while hospitalized. DVT prophylaxis On Coumadin with therapeutic INR Dispo -medically stable for discharge, awaiting approval for [facility]. Patient seen in collaboration with Dr. Ndiaye. Admission and Anticipated Discharge Date Admission Date: June 28, 2023 Supervising Physician Co-Signing Physician Notes I have seen and discussed the case with the collaborating Zoe CARTAGENA. I agree with the above H&P. I have reviewed and confirmed the patients medical history, the findings on physical examination, and the patients diagnosis and treatment plan with Zoe CARTAGENA and agree with the information documented. In short, Ms. Mccabe is a woman with progressive peripheral neuropathy admitted for mechanical falls and found to have sensory ataxic gait. Workup to date has been otherwise negative. Pending approval for inpatient rehab with [facility]. Subjective Follow-up for mechanical fall, ataxia. Patient seen and examined. Offers no complaints, eager to be discharged to rehab. Physical Exam Constitutional: WD/WN, vitals as above Respiratory: normal respiratory effort, lungs clear to auscultation Cardiovascular: Rate/Rhythm: regular rate and regular rhythm Vessels: normal peripheral pulses Extremities: no edema Gastrointestinal (Abdomen): Percussion/Palpation: abdomen soft; abdomen nontender Musculoskeletal: Strength strong and equal BLE Skin: no rashes, warm and dry Neurologic: no focal motor deficits Psychiatric: A+Ox3, euthymic affect Results & Data Results & Data Vital Signs (Past 12 Hours) Vital Signs Temp Pulse Pulse Resp BP Pulse Ox O2 Del Method 07/02/23 15:43 36.6 C 61 16 112/70 94 Room Air 07/02/23 07:37 36.4 C L 67 16 130/82 97 Room Air
[2023-07-02] MEDS: LANTUS PER UNIT CHARGE SQ SCH (21:06)
[2023-07-02] MEDS: traMADol HCL 50 MG TABLET PO PRN (21:06)
[2023-07-03 03:23] LABS: Babesia microti DNA Not Detected (Not Detected)
[2023-07-03 07:50] LABS: INR 2.4 (0.9-1.1); Prothrombin Time 25.1 Seconds (9.0-12.0)
[2023-07-03] MEDS: PANTOprazole 40 MG TAB PO SCH (08:20)
[2023-07-03] MEDS: ATENOLOL 25 MG TABLET PO SCH ×2 (08:20→20:54)
[2023-07-03] MEDS: ROSUVASTATIN CALCIUM 20 MG TAB PO SCH (08:21)
[2023-07-03] MEDS: lisinopril 20 MG TAB PO SCH (08:21)
[2023-07-03] MEDS: CHOLECALCIFEROL 1,000 UNITS 25 MCG TAB PO SCH (08:21)
[2023-07-03] MEDS: THIAMINE HCL 100 MG TAB PO SCH (08:21)
[2023-07-03] MEDS: FENOFIBRATE NANOCRYSTALLIZED 145 MG TABLET PO SCH (08:21)
[2023-07-03] MEDS: FUROSEMIDE 20 MG TAB PO SCH (08:21)
[2023-07-03] MEDS: INSULIN ASPART PER UNIT CHARGE SC SCH ×4 (08:24→21:04)
[2023-07-03] MEDS: ASPIRIN 81 MG CHEW PO SCH (08:25)
[2023-07-03] MEDS ORDERED: CYANOCOBALAMIN 1000 MCG/ML VIAL IM ONE (12:27)
--- NOTE | 2023-07-03 13:05 | XRay Report ---
XR lumbar spine 2-3V HISTORY: 62 years-old Female right leg weakness, right hip pain acute low back pain with right leg w eakness COMPARISON: None TECHNIQUE: 5 views of the lumbar spine FINDINGS: Surgical suture material within the abdominal quadrant. Vascular calcifications. Mild to moderate int ervertebral disc space narrowing with mild spondylitic spurring and moderate facet arthrosis. 4 cm an terolisthesis of L4 on L5, likely degenerative. No definite acute fracture or subluxation. IMPRESSION: 1. No acute fracture or subluxation identified. 2. Degenerative changes as above. ACT 112: Negative or not required by law. The above report was generated using voice recognition software. It may contain grammatical, syntax o r spelling errors. Electronically signed by: Jose Martin Nava M.D. 07/03/2023 1:03 PM
--- NOTE | 2023-07-03 17:17 | Hospitalist Progress Note ---
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 Patient reports symptoms not as dizziness, but that she feels "imbalanced." Denies vertigo/double vision. Reports worsening neuropathy of upper and lower extremities, with improvement initially with B12 supplementation--however, feels worse over the course of the last months. Reports recent viral/cold like illness, but states this has been prior to her illness. She denies ear fullness/tinnitus/congestion. Labs have been unrevealing to date. Physical exam with out overt neurologic deficits. Vital signs stable and without arrhythmia on telemetry overnight. Cardiology following as well given cardiac history with valve replacement and bundle branch block, however, this does not appear cardiogenic in nature. Neurology on consult and noted significant sensory ataxia on exam, which was confirmed by PT who recommends an acute inpatient rehab. Mechanical fall Sensory gait ataxia ? Progressive peripheral neuropathy CT, MRI, Carotids WNL Fall resulted in scalp hematoma History of gastric sleeve, potential for multiple deficiencies contributing to neuropathy: B1, B12, B6 B12 level 333, borderline low; MMA 120, homocysteine 13.6, B6 pending, folate WNL RPR nonreactive, procal negative, CRP 0.6 Lyme serologies negative, no evidence of inclusion bodies on Babesia and Anaplasma smears, confirmatory testing pending Neuro consult: will need OP EMG for assessment of neuropathy Continue thiamine 100mg daily PT/OT: acute inpatient rehab. [facility]. Patient reporting radiculopathy type symptoms that have been present for the past several years. Lumbar spine x-ray obtained - Mild to moderate intervertebral disc space narrowing with mild spondylitic spurring and moderate facet arthrosis. 4 cm anterolisthesis of L4 on L5, likely degenerative. No definite acute fracture or subluxation. Consider outpatient lumbar spine MRI Hypertension HLD Difficult to determine if this is contributing factor. Continue atenolol 25 mg BI, lisinopril 10 mg daily Continue ASA, Statin, fenofibrate Aortic stenosis s/p OnX mechanical valve February 2022 Chronic RBBB Mildly supratherapeutic INR during admission, Coumadin adjusted INR 2.4 INR goal 1.5 - 2.0 due to OnX valve Continue Coumadin 7.5 mg daily DM type II HgbA1c 7.3 Blood sugars controlled, continue glargine 28U qhs. NovoLog per protocol while hospitalized. History of gastric sleeve Patient receives monthly IM vitamin B12 injections Reviewed outpatient records, patient is overdue for injection, vitamin B12 1000 mcg IM given today DVT prophylaxis On Coumadin with therapeutic INR Dispo -medically stable for discharge, awaiting approval for [facility]. Patient seen in collaboration with Dr. Cartwright. Admission and Anticipated Discharge Date Admission Date: June 28, 2023 Supervising Physician Co-Signing Physician Notes I have seen and discussed the case with the collaborating Zoe CARTAGENA. I agree with the above progress note. I have reviewed and confirmed the patients medical history, the findings on physical examination, and the patients diagnosis and treatment plan with Zoe CARTAGENA and agree with the information documented. In short, Ms. Mccabe is a woman with progressive peripheral neuropathy admitted for mechanical falls and found to have sensory ataxic gait. Workup to date has been otherwise negative. Pending approval for inpatient rehab with [facility]. Subjective Follow-up for mechanical fall, ataxia. Patient seen and examined. Observed ambulating in the hallway with walker with therapy. Reports right-sided low back pain that radiates into the right hip and upper leg that has been ongoing for the past several years. Noticed her right foot catching when she was walking with therapy today. No chest pain or shortness of breath. Denies abdominal pain and nausea. Physical Exam Constitutional: WD/WN, vitals as above Respiratory: normal respiratory effort, lungs clear to auscultation Cardiovascular: Rate/Rhythm: regular rate and regular rhythm Vessels: normal peripheral pulses Extremities: no edema Gastrointestinal (Abdomen): Percussion/Palpation: abdomen soft; abdomen nontender Skin: no rashes, warm and dry Neurologic: no focal motor deficits Psychiatric: A+Ox3, euthymic affect Results & Data Results & Data Vital Signs (Past 12 Hours) Vital Signs Temp Pulse Resp BP Pulse Ox O2 Del Method 07/03/23 14:53 36.6 C 76 18 121/70 95 Room Air 07/03/23 07:30 36.3 C L 68 16 114/76 97 Room Air
[2023-07-03] MEDS: WARFARIN SOD 7.5 MG TAB PO SCH (17:20)
[2023-07-03] MEDS: LANTUS PER UNIT CHARGE SQ SCH (20:51)
[2023-07-04] MEDS: traMADol HCL 50 MG TABLET PO PRN (04:49)
[2023-07-04] MEDS ORDERED: PROMETHAZINE HCL 12.5 MG in SODIUM CHLORIDE 0.9% 50 ML IV PRN (05:26)
[2023-07-04 06:01] LABS: Basophils # (auto) 0.06 K/uL (0.00-0.20); Basophils % (auto) 0.8 %; Eosinophils # (auto) 0.16 K/uL (0.00-0.50); Eosinophils % (auto) 2.1 %; Hematocrit (blood only) 48.1 % (37.0-47.0); Hemoglobin 15.4 g/dl (12.0-16.0); Immature Granulocytes # (auto) 0.04 K/uL (0.01-0.20); Immature Granulocytes % (auto) 0.5 %; Lymphocytes # (auto) 3.58 K/uL (1.20-3.40); Lymphocytes % (auto) 47.5 %; Mean Corpuscular Hemoglobin 28.9 pg (25.0-34.0); Mean Corpuscular Volume 90.2 fL (80.0-100.0); Monocytes # (auto) 0.67 K/uL (0.11-0.59); Monocytes % (auto) 8.9 %; Neutrophils # (auto) 3.03 K/uL (1.40-6.50); Neutrophils % (auto) 40.2 %; Platelet Count 285 K/uL (130-400); RDW Coefficient of Variation 13.5 % (11.5-14.5); RDW Standard Deviation 44.6 fL (36.4-46.3); Red Blood Count 5.33 M/uL (4.20-5.40); White Blood Count 7.54 K/ul (4.8-10.8)
[2023-07-04 06:15] LABS: BUN Creatinine Ratio 46.2 (10-20); Calcium 9.7 mg/dl (8.6-10.3); Creatinine Clr Calc Pharmacy 87.5 ml/min; Est GFR (African American) 78.9 ml/min; Est GFR (Non-African American) 68.1 ml/min; Potassium 4.7 mmol/L (3.5-5.1)
[2023-07-04 06:33] LABS: INR 2.9 (0.9-1.1); Prothrombin Time 29.6 Seconds (9.0-12.0)
[2023-07-04] MEDS: CHOLECALCIFEROL 1,000 UNITS 25 MCG TAB PO SCH (08:05)
[2023-07-04] MEDS: FUROSEMIDE 20 MG TAB PO SCH (08:05)
[2023-07-04] MEDS: lisinopril 20 MG TAB PO SCH (08:06)
[2023-07-04] MEDS: PANTOprazole 40 MG TAB PO SCH (08:06)
[2023-07-04] MEDS: THIAMINE HCL 100 MG TAB PO SCH (08:07)
[2023-07-04] MEDS: FENOFIBRATE NANOCRYSTALLIZED 145 MG TABLET PO SCH (08:07)
[2023-07-04] MEDS: ROSUVASTATIN CALCIUM 20 MG TAB PO SCH (08:07)
[2023-07-04] MEDS: ATENOLOL 25 MG TABLET PO SCH ×2 (08:08→20:33)
[2023-07-04] MEDS: ASPIRIN 81 MG CHEW PO SCH (08:29)
[2023-07-04] MEDS: INSULIN ASPART PER UNIT CHARGE SC SCH ×4 (08:32→20:33)
[2023-07-04] MEDS ORDERED: DICLOFENAC SOD 1% GEL 100 GM TUBE EXT PRN (11:54)
[2023-07-04] MEDS ORDERED: DICLOFENAC SOD 1% GEL 100 GM TUBE EXT SCH (12:00)
--- NOTE | 2023-07-04 13:10 | XRay Report ---
XR hip RT min 2V HISTORY: 62 years-old Female pain with flexion acute pain in the right hip COMPARISON: None TECHNIQUE: 2 views of the right hip FINDINGS: Minimal osteoarthritis of the right hip. There is no acute fracture, dislocation or avascular necrosi s. Vascular calcifications within the pelvis. IMPRESSION: No acute fracture or dislocation. ACT 112: Negative or not required by law. The above report was generated using voice recognition software. It may contain grammatical, syntax o r spelling errors. Electronically signed by: Jose Martin Nava M.D. 07/04/2023 1:08 PM
--- NOTE | 2023-07-04 17:17 | Hospitalist Progress Note ---
Date of Service July 04, 2023 Assessment & Plan (1) Peripheral neuropathy: (2) Aortic stenosis: (3) RBBB: (4) Sleep apnea: (5) Type 2 diabetes mellitus: (6) HTN (hypertension): (7) care home (current) use of anticoagulants: Plan Ms Mccabe is a 62 year old woman with history notable for aortic stenosis s/p mechanical valve replacement in 2021, HTN, and DMTII with peripheral neuropathy who was admitted 06/28 with instability and fall. Patient reports symptoms not as dizziness, but that she feels "imbalanced." Denies vertigo/double vision. Reports worsening neuropathy of upper and lower extremities, with improvement initially with B12 supplementation--however, feels worse over the course of the last months. Reports recent viral/cold like illness, but states this has been prior to her illness. She denies ear fullness/tinnitus/congestion. Labs have been unrevealing to date. Physical exam with out overt neurologic deficits. Vital signs stable and without arrhythmia on telemetry overnight. Cardiology following as well given cardiac history with valve replacement and bundle branch block, however, this does not appear cardiogenic in nature. Neurology on consult and noted significant sensory ataxia on exam, which was confirmed by PT who recommends an acute inpatient rehab. Mechanical fall Sensory gait ataxia ? Progressive peripheral neuropathy CT, MRI, Carotids WNL Fall resulted in scalp hematoma History of gastric sleeve, potential for multiple deficiencies contributing to neuropathy: B1, B12, B6 B12 level 333, borderline low; MMA 120, homocysteine 13.6, B6 pending, folate WNL RPR nonreactive, procal negative, CRP 0.6 Lyme serologies negative, no evidence of inclusion bodies on Babesia and Anaplasma smears, confirmatory testing pending Neuro consult: will need OP EMG for assessment of neuropathy Continue thiamine 100mg daily PT/OT: recommending acute inpatient rehab. [facility] - [facility] scheduled for tomorrow at 11 AM. 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 Appreciate continued work with PT Patient reporting radiculopathy type symptoms that have been present for the past several years. Lumbar spine x-ray obtained - Mild to moderate intervertebral disc space narrowing with mild spondylitic spurring and moderate facet arthrosis. 4 cm anterolisthesis of L4 on L5, likely degenerative. No definite acute fracture or subluxation - Consider outpatient lumbar spine MRI R hip XR without evidence of acute fracture or dislocation Discussed benefits of continued mobility, weight loss. Added heat compress PRN, Voltaren gel Hypertension HLD Difficult to determine if this is contributing factor. Continue atenolol 25 mg BI, lisinopril 10 mg daily Continue ASA, Statin, fenofibrate Aortic stenosis s/p OnX mechanical valve February 2022 Chronic RBBB Mildly supratherapeutic INR during admission, Coumadin adjusted INR goal 1.5 - 2.0 due to OnX valve INR 2.9 today (goal 1.5-2) so will hold today's dose, plan to decrease to 5mg daily tomorrow based on INR DM type II HgbA1c 7.3 Blood sugars controlled, continue glargine 28U qhs. NovoLog per protocol while hospitalized. History of gastric sleeve Patient receives monthly IM vitamin B12 injections Reviewed outpatient records, patient is overdue for injection, vitamin B12 1000 mcg IM given today DVT prophylaxis On Coumadin with therapeutic INR - INR 2.9 (goal 1.5-2) so will hold today's dose, plan to decrease to 5mg daily tomorrow based on INR Morbid obesity BMI 44. Discussed benefits of lifestyle changes in regards to reducing pain as above Dispo -medically stable for discharge, awaiting [facility] to peer tomorrow for rehab. Patient seen in collaboration with Dr. Cartwright. Admission and Anticipated Discharge Date Admission Date: June 28, 2023 Supervising Physician Co-Signing Physician Notes I have seen and discussed the case with the collaborating Lizeth HERNANDEZ. I agree with the above progress note. I have reviewed and confirmed the patients medical history, the findings on physical examination, and the patients diagnosis and treatment plan with Zoe CARTAGENA and agree with the information documented. In short, Ms. Mccabe is a woman with progressive peripheral neuropathy admitted for mechanical falls and found to have sensory ataxic gait. Workup to date has been otherwise negative. Pending approval for inpatient rehab with [facility]. [facility] Seen and examined in follow-up for mechanical fall, ataxia. Patient ambulating with walker in her room and halls but feels weak compared to baseline. Still experiencing right-sided pain mainly in the right hip and radiating down thigh that has been present for many years but more noticeable during this admission. Generally takes tramadol and Tylenol at home routinely due to history of headaches, so wondering if pain is unmasked from less frequent medications. Radicular component considered yesterday, with lumbar spine x-ray revealing some degenerative changes but nothing acute. Denies any fever, chills, lightheadedness, chest pain, shortness of breath, nausea, vomiting, abdominal pain, dysuria, diarrhea, constipation. Review of Systems Review of Systems: At least ten systems reviewed and negative except as noted in the HPI. Physical Exam Physical Exam: Gen: WD/WN, NAD, sitting up in bed, A&Ox3, morbidly obese HEENT: Normocephalic, atraumatic, conjunctivae moist, sclerae anicteric, mucous membranes moist Lung: Clear to Auscultation bilaterally, no wheezes/rales/rhonchi Heart: Regular rate, regular rhythm, no murmurs, rubs, or gallops Abdomen: Soft, NT, ND +BS x 4 Extremities: + TTP R lumbar paraspinal musculature, R hip and lateral thigh, no edema Skin: Warm, no rash Results & Data Results & Data Vital Signs (Past 12 Hours) Vital Signs Temp Pulse Resp BP BP Pulse Ox O2 Del Method 07/04/23 15:29 36.6 C 75 18 108/72 94 Room Air 07/04/23 07:53 36.4 C L 66 17 112/77 95 Room Air Laboratory Results Short CBC 07/04/23 Range/Units 05:36 WBC 7.54 (4.8-10.8) K/ul Hgb 15.4 (12.0-16.0) g/dl Hct 48.1 H (37.0-47.0) % Plt Count 285 (130-400) K/uL BMP 07/04/23 05:36 Sodium 141 Potassium 4.7 Chloride 107 Carbon Dioxide 27 BUN 42 H Creatinine 0.91 Glucose 79 Calcium 9.7 Diagnostic Findings Cervical Spine CT 06/27/23 22:17 Exam(s): CT C SPINE EXAM: CT Cervical Spine Without Intravenous Contrast CLINICAL HISTORY: Reason for exam: fall. TECHNIQUE: Axial computed tomography images of the cervical spine without intravenous contrast. CTDI is 25.33 mGy and DLP is 535.44 mGy-cm. Automated exposure control was utilized for the study. A dose lowering technique was utilized adhering to the principles of ALARA. COMPARISON: No relevant prior studies available. FINDINGS: Vertebrae: There is straightening of the normal cervical lordosis. There is diffuse osseous demineralization. No acute fracture. Discs/spinal canal/neural foramina: There is moderate to severe multilevel degenerative change with intervertebral disc space loss and productive changes. No spinal canal stenosis. Soft tissues: Unremarkable. Vasculature: There is dense calcification of the carotid bulbs. IMPRESSION: Multilevel degenerative change without acute injury identified. Electronically signed by: Gilberto Molina MD 06/27/23 23:[address] 06/27/23 22:17 Exam(s): CT HEAD Without Contrast EXAM: CT Head Without Intravenous Contrast CLINICAL HISTORY: Reason for exam: hit head on coumadin. TECHNIQUE: Axial computed tomography images of the head/brain without intravenous contrast. CTDI is 37.22 mGy and DLP is 624.41 mGy-cm. Automated exposure control was utilized for the study. A dose lowering technique was utilized adhering to the principles of ALARA. 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 The cerebral and cerebellar sulci are mildly prominent consistent with mild brain atrophy. There are a few areas of decreased attenuation in the deep cerebral white matter consistent with mild small vessel ischemic/degenerative changes. No hemorrhage. Ventricles: Unremarkable. No ventriculomegaly. Bones/joints: Unremarkable. No acute fracture. Soft tissues: Moderate soft tissue swelling over the high right parietal calvarium. Vasculature: Atherosclerotic disease. Sinuses: Unremarkable as visualized. No acute sinusitis. Mastoid air cells: Unremarkable as visualized. No mastoid effusion. IMPRESSION: No acute findings in the head/brain. Electronically signed by: Gilberto Molina MD 06/27/23 23:47 PM Brain MRI 06/28/23 02:53 MR brain wo/w con CLINICAL HISTORY: imbalance and falls. has mechanical aortic valve TECHNIQUE: Multiplanar and multisequence MR images of the brain were obtained prior to and following administration of gadolinium contrast. Comparison: Comparison is made to MRI brain 03/23/2022 FINDINGS: No abnormal restricted diffusion is identified. Foci of T2 and FLAIR hyperintensity are noted in the paraventricular areas consistent with chronic small vessel ischemic disease. Focal gliosis in the right frontal lobe is unchanged likely due to prior infarct. Ex vacuo ventriculomegaly and sulcal enlargement is noted compatible with diffuse volume loss. No mass or abnormal enhancement is seen. There is no mass effect or midline shift. There is no evidence of acute intraparenchymal hemorrhage. Scalp hematoma is seen over the right posterior calvarium. No extra axial fluid collections are seen. The corpus callosum, pituitary gland, and cerebellar tonsils appear grossly unremarkable. Flow voids of the major intracranial arterial vessels are identified. The imaged portions of the paranasal sinuses, mastoid air cells, and orbits are unr emarkable. IMPRESSION: 1. No acute intracranial abnormalities. 2. Scalp hematoma is seen. ACT 112: Negative or not required by law. Electronically signed by: Juancarlos Lewis M.D. 06/28/2023 8:32 AM Carotid Doppler Study 06/28/23 02:53 BILATERAL CAROTID DOPPLER STUDY HISTORY: near syncope COMPARISON: CTA neck 03/23/2022. TECHNIQUE: Real-time, grayscale, and color Doppler sonography of the carotid arteries was performed. Imaging reviewed in the transverse and longitudinal planes. All measurements were calculated based on NASCET criteria. FINDINGS: Antegrade flow is seen in the bilateral vertebral arteries. No significant calcified plaque within the carotid arteries. The peak systolic velocity within the right ICA is 70 cm/s. The right systolic ratio is 1.2. The peak systolic velocity within the left ICA is 74 cm/s. The left systolic ratio is 1.2. IMPRESSION: No hemodynamically significant stenosis seen within the carotid arteries. ACT 112: Negative or not required by law. Electronically signed by: Eulalio Valdivia M.D. 06/28/2023 7:43 AM Lumbar Spine X-Ray 07/03/23 11:00 XR lumbar spine 2-3V HISTORY: 62 years-old Female right leg weakness, right hip pain acute low back pain with right leg weakness COMPARISON: None TECHNIQUE: 5 views of the lumbar spine FINDINGS: Surgical suture material within the abdominal quadrant. Vascular calcifications. Mild to moderate intervertebral disc space narrowing with mild spondylitic spurring and moderate facet arthrosis. 4 cm anterolisthesis of L4 on L5, likely degenerative. No definite acute fracture or subluxation. IMPRESSION: 1. No acute fracture or subluxation identified. 2. Degenerative changes as above. ACT 112: Negative or not required by law. The above report was generated using voice recognition software. It may contain grammatical, syntax or spelling errors. Electronically signed by: Jose Martin Nava M.D. 07/03/2023 1:03 PM Hip X-Ray 07/04/23 11:52 XR hip RT min 2V HISTORY: 62 years-old Female pain with flexion acute pain in the right hip COMPARISON: None TECHNIQUE: 2 views of the right hip FINDINGS: Minimal osteoarthritis of the right hip. There is no acute fracture, dislocation or avascular necrosis. Vascular calcifications within the pelvis. IMPRESSION: No acute fracture or dislocation. ACT 112: Negative or not required by law. The above report was generated using voice recognition software. It may contain grammatical, syntax or spelling errors. Electronically signed by: Jose Martin Nava M.D. 07/04/2023 1:08 PM
[2023-07-04] MEDS: LANTUS PER UNIT CHARGE SQ SCH (20:34)
[2023-07-05] MEDS ORDERED: INFLUENZA VIRUS QUADRIVALENT VACCINE (IIV4) 0.5 ML SYR IM ONE (08:00)
[2023-07-05] MEDS: THIAMINE HCL 100 MG TAB PO SCH (09:16)
[2023-07-05] MEDS: lisinopril 20 MG TAB PO SCH (09:16)
[2023-07-05] MEDS: FUROSEMIDE 20 MG TAB PO SCH (09:16)
[2023-07-05] MEDS: FENOFIBRATE NANOCRYSTALLIZED 145 MG TABLET PO SCH (09:18)
[2023-07-05] MEDS: PANTOprazole 40 MG TAB PO SCH (09:18)
[2023-07-05] MEDS: ROSUVASTATIN CALCIUM 20 MG TAB PO SCH (09:18)
[2023-07-05] MEDS: CHOLECALCIFEROL 1,000 UNITS 25 MCG TAB PO SCH (09:19)
[2023-07-05] MEDS: ATENOLOL 25 MG TABLET PO SCH (09:19)
[2023-07-05] MEDS: INSULIN ASPART PER UNIT CHARGE SC SCH ×2 (09:31→12:38)
[2023-07-05] MEDS: ASPIRIN 81 MG CHEW PO SCH (09:32)
[2023-07-05 10:21] LABS: Hematocrit (blood only) 45.9 % (37.0-47.0); Hemoglobin 14.8 g/dl (12.0-16.0); Mean Corpuscular Hgb Conc 32.2 g/dL (32.0-36.0); Mean Corpuscular Volume 89.8 fL (80.0-100.0); Mean Platelet Volume 10.1 fL (9.4-12.4); Platelet Count 300 K/uL (130-400); RDW Coefficient of Variation 13.5 % (11.5-14.5); RDW Standard Deviation 44.8 fL (36.4-46.3); Red Blood Count 5.11 M/uL (4.20-5.40); White Blood Count 7.78 K/ul (4.8-10.8)
[2023-07-05 10:49] LABS: BUN Creatinine Ratio 53.1 (10-20); Calcium 9.5 mg/dl (8.6-10.3); Creatinine Clr Calc Pharmacy 98.3 ml/min; Est GFR (African American) 90.9 ml/min; Est GFR (Non-African American) 78.4 ml/min; Potassium 4.7 mmol/L (3.5-5.1)
--- NOTE | 2023-07-05 13:39 | Discharge Summary ---
Discharge Summary Date of Service July 05, 2023 Notes For Next Care Provider Admitted for multiple falls 2/2 sensory ataxic gait, or impaired ability to walk due to the nature of your neuropathy. F/u with neuro for EMG, dc to acute rehab Medication Changes From Visit continue B1 supplement, started on 20mg lisinopril daily, decreased coumadin to 5mg daily Admission HPI Per Admitting Provider 62-year-old female with past medical significant for type 2 diabetes, hypertension, sleep apnea, hypertension, severe aortic stenosis s/p aortic valve replacement, obesity s/p gastric sleeve procedure presents with imbalance and fall. Patient is a [employer] and today she was at [employer] when she felt imbalance and fell on the right side no loss of consciousness. When she was walking again she she felt loss of balance and fell backwards and hit her back of the head. During the episode no loss of consciousness, no feeling of chest pain or dizziness or palpitations. She is feeling imbalance for some time at home but she thinks she never fell. Currently has some headache. Denies any blurred visions. No earaches. Early in the week she has some cold symptoms but got resolved now. No dysphagia. No chest pain or shortness of breath. Currently no cough. Appetite is okay. No nausea or vomiting. No abdominal pain. Normal bowel and bladder movements. Currently resting comfortably. Past medical history as mentioned above Past surgical history. S/p aortic valve replacement. S/p gastric sleeve procedure. Right breast biopsy. Social history. No smoking. No alcohol. Family history. Mother had atrial fibrillation. Heart failure. Stroke. Father has colon polyps. CAD. Hyperlipidemia. Prediabetes. Paternal grandfather had brain aneurysm. Maternal aunt had breast cancer. Paternal aunt has colon cancer. Maternal grandfather had a heart attack. Brother has hyperlipidemia. Maternal grandmother had stroke. Admission Exam Per Admitting Provider General- Not in distress Head- Palpable bump on posterior part of head. Eyes- PERRL, EOMI, anicteric ENT- oropharynx clear Neck- supple, no JVD, no adenopathy. Lungs- clear to auscultation , No wheezing or crackles. Heart- regular rhythm; mechanical heart sounds in aortic area., no gallop. Abdomen- normal bowel sounds, soft, nontender, no distension. Extremities-Lower extremity edema present. No erythema seen. Neuro- alert, oriented x 3; PERRL, EOMI; no facial palsy; no dysarthria; motor 5/5 bilaterally; no pronator drift, coordination of movements normal, sensation and position sense intact. 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 Reports worsening neuropathy of upper and lower extremities, with improvement initially with B12 supplementation; however, feels worse over the course of the last months. Reports recent viral/cold like illness, but states this has been prior to her illness. Labs have been unrevealing to date. Physical exam without overt neurologic deficits. Vital signs stable and without arrhythmia on telemetry overnight. Cardiology consulted given cardiac history with valve replacement and bundle branch block, however, this does not appear cardiogenic in nature. Neurology consulted and noted significant sensory ataxia on exam, which was confirmed by PT who recommended an acute inpatient rehab as well as follow up EMG with outpatient neurology to better determine extent of your neuropathy and aid in future interventions/management. Recommended to continue B complex vitamin given history of gastric sleeve surgery. Started on lisinopril 20mg daily given elevated blood pressure with improvement noted. Continue monitoring BP and obtain follow up BMP at acute rehab. Mildly supratherapeutic INR during admission, with INR goal of 1.5-2 on OnX Valve. Coumadin adjusted to 5mg daily and instructed to follow-up with coumadin clinic for continued montoring and adjustments. Patient comfortable and hemodynamically stable for discharge to inpatient rehab today. Discharge Exam Gen: WD/WN, NAD, sitting up in bed, A&Ox3, morbidly obese HEENT: Normocephalic, atraumatic, conjunctivae moist, sclerae anicteric, mucous membranes moist Lung: Clear to Auscultation bilaterally, no wheezes/rales/rhonchi Heart: Regular rate, regular rhythm, no murmurs, rubs, or gallops Abdomen: Soft, NT, ND +BS x 4 Extremities: +Decreased pain in R hip and lateral thigh, no edema Skin: Warm, no rash Updated Medication List Medication Instructions Recorded Confirmed Type atenolol 50 mg tablet 25 mg PO BID 01/24/22 06/28/23 History cholecalciferol (vitamin D3) 50 2,000 unit PO QAM 01/24/22 06/28/23 History mcg (2,000 unit) capsule (Vitamin D3) fenofibrate nanocrystallized 145 145 mg PO QAM 01/24/22 06/28/23 History mg tablet furosemide 20 mg tablet (Lasix) 20 mg PO QAM 01/24/22 06/28/23 History insulin glargine 100 unit/mL (3 28 unit subcut HS 01/24/22 06/28/23 History mL) subcutaneous pen (Lantus Solostar U-100 Insulin) metformin 500 mg tablet,extended 1,000 mg PO QAM 01/24/22 06/28/23 History release 24 hr omeprazole 20 mg capsule,delayed 20 mg PO QAM 01/24/22 06/28/23 History release rosuvastatin 40 mg tablet 40 mg PO QAM 01/24/22 06/28/23 History aspirin 81 mg chewable tablet 81 mg PO DAILY 06/28/23 06/28/23 History semaglutide 2 mg/dose (8 mg/3 mL) 2 mg subcut WK 06/28/23 06/28/23 History subcutaneous pen injector (Ozempic) lisinopril 20 mg tablet 20 mg PO QAM #30 tabs 06/30/23 Rx thiamine HCl (vitamin B1) 100 mg 100 mg PO QAM #30 tabs 06/30/23 Rx tablet warfarin 5 mg tablet 5 mg PO DAILY #20 tabs 07/05/23 06/28/23 Rx Hospital Stay Data Consultations 06/28/23 00:34 ED Decision to Admit Stat 06/28/23 08:00 Consult Cardiology Routine 06/28/23 14:20 Consult Neurology Routine Diagnostic Imagining Performed 06/27/23 22:17 CT cervical spine wo con Stat CT head/brain wo con Stat 06/28/23 02:53 MRI Brain [MR brain wo/w con] Routine US carotid doppler BI Routine Pending Results Patient Have Any Pending Studies at Discharge: No Discharge Instructions Given to Patient (Per Discharging Provider) You were admitted due to multiple falls and found to have a sensory ataxic gait, or impaired ability to walk due to the nature of your neuropathy. It is recommended that you follow up with Neurology and obtain an EMG which can help determine the extent of your neuropathy and aid in future interventions/management. Additionally, given your history of gastric sleeve surgery, it is strongly recommended that you trial a B-complex vitamin with B12, B6, B1. This won't necessarily resolve your neuropathy, but can provide some relief. You will be sent with a prescription for thiamine 100mg daily (b1). You have been started on Lisinopril 20mg due to elevated blood pressures during admission. Please continue this and follow up with your PCP and Design Consultant for further dose titration if necessary. Your coumadin dose has been decreased to 5mg daily due to elevated INR. Please follow up with coumadin clinic upon discharge from rehab for continued monitoring. Total Time Total Time Spent Total Time Spent (In Minutes): 60 Supervising Physician Co-Signing Physician Notes I have seen and discussed the case with the collaborating Lizeth HERNANDEZ. I agree wi th the above progress note. I have reviewed and confirmed the patients medical history, the findings on physical examination, and the patients diagnosis and treatment plan with Zoe CARTAGENA and agree with the information documented. In short, Ms. Mccabe is a woman with progressive peripheral neuropathy admitted for mechanical falls and found to have sensory ataxic gait. Workup to date has been otherwise negative. Pending approval for inpatient rehab with [facility] to establish w/ OP neurology and possible EMG as OP and further workup for her peripheral neuropathy.
[2023-07-05 14:02] LABS: INR 2.2 (0.9-1.1); Prothrombin Time 23.3 Seconds (9.0-12.0)
== END 2023-07-05 15:38 | DRG 74 ==
LOC: ED 21:44 → SUATTDRO 06-28 02:06 → EDINP 06-28 02:06 → 2E 06-28 08:18 → 3W 06-30 22:06